=== PATIENT | male | born 1965 | race Caucasian/White ===

== ENCOUNTER → 2018-07-04 14:16 | Outpatient (BNVA) | payer MEDICARE, MEDICAID, SELFPAY | PROVIDERS: Visit Provider Surgery | DX: Z12.11 Encounter for screening for malignant neoplasm of colon (principal) | CPT/HCPCS: S0285 ==

== ENCOUNTER 2018-07-14 09:12 | Day surgery (SDC) | payer MEDICARE, MEDICAID, SELFPAY ==
--- NOTE | 2018-07-10 10:58 | DSU.FORM ---
Per Adolfo he signs for himself. Vicky Penn per pt is his private counselor and will be transporting him to and from his colonoscopy appointment. [facility] called and they will help Adolfo with the medication to take the morning of the procedure. (Gisele Gee pharmacist) Per pt he has a TREY case assembler but he will not be seeing her the day of his procedure. (Amy YANG) Per pt he has a therapy dog and his neighbor will be taking care of him at the time of his procedure>
--- NOTE | 2018-07-14 07:00 | W.COLOREPORT ---
Colonoscopy Report Date of procedure: 07/14/18 Pre-op diagnosis general: Colon Cancer screening Post-op diagnosis procedure note: other (polyps) Procedure: Colonoscopy with polypectomy by forceps Surgeon: Olesya Rodriguez Anesthesia proc note operative: MAC (Dillon Bronson CRNA) Estimated blood loss (mL): 5 Pathology: other (transverse polyps) Complications: None Disposition: same day Indications: Mr. Lezama was seen in the office for his first Colonoscopy. Risks, benefits and complications were reviewed and he wished to proceed. He had no questions. Prep: Miralax/Dulcolax Procedure Start Time: 11:08 Procedure End Time: 11:37 Retraction Time: 20 minutes Findings: 3 sessile polyps in the mid-transverse colon Procedure Description: After informed consent was obtained the patient was taken to the procedure room and placed in a left decubitous position. Monitors were applied and a time out was done. The patients name, date of , procedure, allergies to medications and metal in their body was reviewed. The patient was then sedated. Once sedated and comfortable a rectal exam was done. External exam was normal. Internal exam revealed a normal sphincter tone and no palpable masses. The prostate was smooth. The scope was then introduced and retroflexed. No internal hemorrhoids were identified. The scope was then advanced to the cecum without difficulty. The TI and appendiceal orifice were identified. The prep was adequate. The scope was then slowly retracted over 20 minutes back into the rectum. 3 small sessile polyps were identified in the transverse colon and removed with forceps. The scope was removed and the patient was woken up and taken back to Same day surgery in stable condition. The patient tolerated the procedure well and there were no immediate complications. Follow up: The patient should follow up in 3-5 years, dependingon the final pathology results, unless they develop changes in bowel habits or other new gastrointestinal complaints.
--- NOTE | 2018-07-14 07:04 | PDOC.DSDIS_ITS ---
Discharge Plan Disposition Patient Disposition: HOME Condition: Good Discharge Details Reason For Visit: Colon Cancer screening Attending Provider: Olesya Rodriguez Primary Care Provider: Kelsey Howard Home Meds and New Rx's Prescriptions: Continue atorvastatin 20 mg tablet 20 mg PO DAILY RF: 0 oxycodone-acetaminophen 5-325 mg tablet 1 tab PO DAILY Qty: 30 RF: 0 ketoconazole 2 % shampoo 1 applic Topical DAILY Qty: 120 RF: 3 ketoconazole 2 % cream 1 applic TP BID Qty: 60 RF: 3 FIXADENT 1 dose Topical DAILY RF: 0 latanoprost 2.5 ML drops 1 drp OU HS RF: 0 naloxone [Narcan] 4 MG spray,non-aerosol 4 mg NS PRN Qty: 2 RF: 0 Ketoconazole 15 GM CREAM..G. 15 gm Topical BID Qty: 1 RF: 5 modafinil 200 MG tablet 200 mg PO DIRECTED RF: 0 ropinirole [Requip] 0.25 MG tablet 1 tab PO HS Qty: 90 RF: 4 clomipramine [Anafranil] 50 MG capsule 4 cap PO HS Qty: 360 RF: 12 buspirone 15 MG tablet 2 tab PO TID Qty: 270 RF: 4 cyanocobalamin (vitamin B-12) [Vitamin B-12] 1,000 MCG tablet extended release 1 tab PO DAILY Qty: 90 RF: 12 melatonin 3 MG tablet 3 mg PO HS Qty: 90 RF: 12 aspirin [Ecotrin Low Strength] 81 MG tablet,delayed release (DR/EC) 1 tab PO DAILY Qty: 90 RF: 12 docusate sodium [Colace] 100 MG capsule 1 cap PO BID PRNQty: 180 RF: 4 clonazepam 1 MG tablet 1 mg PO HS Qty: 90 RF: 5 finasteride [Proscar] 5 MG tablet 1 tab PO DAILY Qty: 90 RF: 4 omeprazole 20 MG tablet,delayed release (DR/EC) 20 mg PO DAILY Qty: 90 RF: 12 ammonium lactate 140 GM cream 140 gm Topical BID Qty: 3 RF: 12 lactase [Lactaid Fast Act] 9,000 UNIT tablet,chewable 9,000 unit PO ac and prn Qty: 90 RF: 11 doxycycline monohydrate 100 MG capsule 100 mg PO BID Qty: 14 RF: 0 metoprolol succinate [Toprol XL] 200 MG tablet extended release 24 hr 1 tab PO DAILY RF: 0 tamsulosin 0.4 MG capsule 0.4 mg PO DAILY RF: 0 levothyroxine 50 mcg tablet 2 cap PO DAILY RF: 0 Discharge Instructions Instructions: Colonoscopy (DC), Colorectal Polyps (DC) Additional Instructions: Findings: 3 polyps Follow up: 3-5 years New medications: none Please call if you develop: fevers >101.5 Nausea or Vomiting Abdominal pain that is not transient 1. Because there will be medication in your system for the next 24 hours, you may feel a little sleepy. Your coordination will be affected. Therefore: a. Do not drive or operate dangerous equipment for 24 hours. b. Do not drink alcohol beverages for 24 hours (not even beer). c. Plan to go home and rest for the day. 2. Generally there are no restrictions on your activity after a day or so has gone by, but you may feel a bit fatigued for a few days. 3 After you arrive home you may have a light meal and return to a normal diet as you can tolerate it without feeling sick to your stomach. 4. After surgery, you may feel pain or discomfort. This should be only transient , but if it persists please contact your doctor. 5. If there are any questions regarding the findings of your procedure, please feel free to contact your doctor. 6. If you are unable to contact your doctor with a problem, contact the hospital at [phone]. 7. Continue all your regular medications unless directed otherwise. I understand the above instructions and have no questions. Signature of Patient or Responsible Adult Escort Date/Time Name of Responsible Adult Escort Signature of Nurse Date/Time Activity:: Activity as Tolerated Diet:: As Tolerated Discharge Orders Discharge Orders: Discharge Order (Routine); Ordered 07/14/18 Ordered By: Olesya Rodriguez
[2018-07-14 09:12] VITALS: BP 121/74; PULSE 61; RESP 16; TEMP 36.6; O2SAT 94
[2018-07-14] MEDS: Lactated Ringers 1,000 ML 80 ML IV (10:04)
--- NOTE | 2018-07-14 11:30 | BOWEL_PTH ---
PATIENT: Adolfo Lezama Sr LOC: [facility] U#:[id number] AGE/SX: 52/M ROOM: RE07/14/[address]: Olesya Rodriguez MD : [id number] BED: DIS: 07/14/2018 SPEC #: [id number] RECD: 07/14/18 13:07 STATUS: CHERYL RE #: [id number] BOGDAN: 07/14/18 11:[address]: Olesya Rodriguez DEPT: Surgical Specimen RECD BY: Meghan Anderson ENTERED: 07/14/18 13:08 SP TYPE: Bowel OTHR DR: Kelsey Howard MD, DC Tissues: 1 - BIOPSY BOWEL Procedures: GROSS AND MICRO LEVEL 4 Comments: [id number]
[2018-07-14 12:13] VITALS: BP 118/68; PULSE 64; RESP 17; TEMP 36.3; O2SAT 97
== END 2018-07-14 12:42 | disposition home or self-care (01) ==
LOC: SUR 09:12
PROVIDERS: PCP Family Medicine; Visit Provider Surgery
PROC: 0DJD8ZZ Inspection of Lower Intestinal Tract, Via Natural or Artificial Opening Endoscopic (ICD-10-PCS; CPT 45378; principal; 2018-07-14 11:15)
DX: Z12.11 Encounter for screening for malignant neoplasm of colon (principal); D12.3 Benign neoplasm of transverse colon; J44.9 Chronic obstructive pulmonary disease, unspecified; E11.9 Type 2 diabetes mellitus without complications; G47.33 Obstructive sleep apnea (adult) (pediatric); I10 Essential (primary) hypertension
CPT/HCPCS: 45380; 88305; J2250; J3010

== ENCOUNTER 2018-07-21 01:18 | Outpatient (CLI) | payer MEDICARE, MEDICAID, SELFPAY ==
--- NOTE | 2018-07-21 14:19 | DI.RAD_ITS ---
SYMPTOMS/DIAGNOSIS: CERVICAL DISC DISORDER WITH MYELOPATHY, M50.00 CERVICAL SPINE: Eight views were obtained. There is an anterior and posterior cervical fusion involving C 4 through C 7 with wire fixation posteriorly. C 2 - 3 and C 3 - 4 intervertebral disc spaces appear fairly well maintained. There is a moderate left convex scoliosis involving lower cervical and upper thoracic spine. No other focal bony abnormality seen.
[2018-07-21 15:03] LABS: Abs Immature Grans 0.03 k/cumm (0.0-0.09); Absolute Basophil Count 0.04 k/cumm (0.0-0.2); Absolute Lymphocyte Count 1.72 k/cumm (1.2-3.4); Absolute Monocyte Count 0.71 k/cumm (0.11-0.7); Absolute Neutrophil Count 6.75 k/cumm (1.2-6.7); Basophils % 0.4; Eosinophils % 1.1; HCT 46.1 % (40.0-50.0); HGB 15.5 g/dL (13.5-17.5); Immature Grans % 0.3; Lymphocytes % 18.4; Mean Corp. HGB Concentration 33.6 g/dL (32.0-36.0); Mean Corpuscular Hemoglobin 30.7 pg (27.0-33.0); Mean Corpuscular Volume 91.3 fL (80-95); Mean Platelet Volume 10.5 fL (8.0-11.0); Monocytes % 7.6; Neutrophils % 72.2; Platelet Count 215 x1000/uL (130-400); RBC 5.05 m/cumm (4.50-6.00); RBC Distribution Width 13.8 % (11.8-14.1); White Blood Cell Count 9.35 k/cumm (4.4-10.8)
[2018-07-21 15:19] LABS: Hemoglobin A1C 6.1 % (4.5-6.2)
[2018-07-21 16:20] LABS: ALT 124 U/L (12-78); AST 91 U/L (15-37); Albumin 3.7 g/dL (3.4-5.0); Alkaline Phosphatase 91 U/L (46-116); Anion Gap 10.3 mmol/L (3-11); BUN 10 mg/dL (7-18); Bilirubin, Total 0.4 mg/dL (0.2-1.0); CO2 27.7 mmol/L (21.0-32.0); CREATININE 1.25 mg/dL (0.70-1.30); Calcium 8.9 mg/dL (8.5-10.1); Chloride 99 mmol/L (98-107); Glucose 105 mg/dL (70-100); Potassium 4.3 mmol/L (3.5-5.1); Sodium 137 mmol/L (136-145); Total Protein 7.6 g/dL (6.4-8.2)
[2018-07-21 16:28] LABS: TSH (W/Ref FT4) 1.69 uIU/mL (0.358-3.74)
== END 2018-07-21 01:38 ==
PROVIDERS: Nurse Practitioner Psychiatric/Mental Health; PCP Family Medicine; Visit Provider Family Medicine
DX: E11.9 Type 2 diabetes mellitus without complications (principal); K76.0 Fatty (change of) liver, not elsewhere classified; F33.0 Major depressive disorder, recurrent, mild; M50.022 Cervical disc disorder at C5-C6 level with myelopathy; Z98.1 Arthrodesis status
CPT/HCPCS: 36415; 80053; 72052; 83036; 84443; 85025

== ENCOUNTER → 2018-11-11 12:38 | Outpatient (BNVA) | payer MEDICARE, MEDICAID, SELFPAY | PROVIDERS: PCP Family Medicine; Visit Provider Urology | DX: R39.13 Splitting of urinary stream (principal); I10 Essential (primary) hypertension; E11.9 Type 2 diabetes mellitus without complications; J44.9 Chronic obstructive pulmonary disease, unspecified; Z87.891 Personal history of nicotine dependence | CPT/HCPCS: 99213 ==

== ENCOUNTER 2018-12-11 09:55 | Outpatient (CLI) | payer MEDICARE, MEDICAID, SELFPAY | END 2018-12-11 10:15 | PROVIDERS: PCP Family Medicine; Visit Provider Urology | DX: Z01.818 Encounter for other preprocedural examination (principal) ==

== ENCOUNTER 2018-12-22 08:40 | Day surgery (SDC) | payer MEDICARE, MEDICAID, SELFPAY ==
[2018-12-22 08:54] VITALS: BP 143/64; PULSE 55; RESP 18; TEMP 36.4; O2SAT 96
[2018-12-22] MEDS: Lactated Ringers 1,000 ML 80 ML IV (09:11)
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
[2018-12-22] MEDS: Bupivacaine 0.5% Pres-Free 30 ML VIAL (10:51)
--- NOTE | 2018-12-22 10:58 | W.PM.DSUDISC ---
Discharge Plan Disposition Patient Disposition: HOME Condition: Stable Discharge Details Reason For Visit: circumcision Attending Provider: Emiliano Jade Primary Care Provider: Kelsey Howard Home Meds and New Rx's Prescriptions: No Action ketoconazole 2 % shampoo 1 applic Topical DAILY Qty: 120 RF: 3 ketoconazole 2 % cream 1 applic TP BID Qty: 60 RF: 3 ammonium lactate 12 % cream 1 applic TP BID RF: 0 oxycodone-acetaminophen 5-325 mg tablet 1 tab PO DAILY MDD 1 Qty: 30 RF: 0 clotrimazole 1 % solution 1 applic TP BID Qty: 30 RF: 2 FIXADENT 1 dose Topical DAILY RF: 0 latanoprost 2.5 ML drops 1 drp OU HS RF: 0 Narcan 4 MG spray,non-aerosol 4 mg NS PRN Qty: 2 RF: 0 modafinil 200 MG tablet 200 mg PO DIRECTED RF: 0 ropinirole [Requip] 0.25 MG tablet 1 tab PO HS Qty: 90 RF: 4 clomipramine [Anafranil] 50 MG capsule 4 cap PO HS Qty: 360 RF: 12 buspirone 15 MG tablet 2 tab PO TID Qty: 270 RF: 4 cyanocobalamin (vitamin B-12) [Vitamin B-12] 1,000 MCG tablet extended release 1 tab PO DAILY Qty: 90 RF: 12 melatonin 3 MG tablet 3 mg PO HS Qty: 90 RF: 12 aspirin [Ecotrin Low Strength] 81 MG tablet,delayed release (DR/EC) 1 tab PO DAILY Qty: 90 RF: 12 docusate sodium [Colace] 100 MG capsule 1 cap PO BID PRNQty: 180 RF: 4 finasteride [Proscar] 5 MG tablet 1 tab PO DAILY Qty: 90 RF: 4 omeprazole 20 MG tablet,delayed release (DR/EC) 20 mg PO DAILY Qty: 90 RF: 12 ammonium lactate 140 GM cream 140 gm Topical BID Qty: 3 RF: 12 Lactaid Fast Act 9,000 UNIT tablet,chewable 9,000 unit PO ac and prn Qty: 90 RF: 11 bupropion HCl [Wellbutrin SR] 150 mg tablet sustained-release 12 hr 150 mg PO BID RF: 0 clonazepam 1 mg tablet 1 mg PO HS Qty: 90 RF: 5 amoxicillin 500 mg tablet 500 mg PO QID Qty: 28 RF: 0 metoprolol succinate [Toprol XL] 200 MG tablet extended release 24 hr 1 tab PO DAILY RF: 0 tamsulosin 0.4 MG capsule 0.4 mg PO DAILY RF: 0 levothyroxine 50 mcg tablet 2 cap PO DAILY RF: 0 Discharge Instructions Additional Instructions: OK to bathe/shower tomorrow - once dressing is wet, can remove dressing F/U with me @ 1 week May restart aspirin on 12/24/18 Activity:: Activity as Tolerated Remove Dressings/Wound Care:: 24 hours Shower/Bathe:: 24 hours Diet:: As Tolerated Discharge Orders Discharge Orders: Discharge Order (Routine); Ordered 12/22/18 Ordered By: Emiliano Jade DS: Diagnosis Discharge Diagnosis (1) Urinary stream splitting: Status: Chronic
[2018-12-22 11:32] VITALS: BP 114/70; PULSE 55; RESP 18; O2SAT 97
[2018-12-22] MEDS: HYDROcodone 5/Acetaminophen 325 TAB PO (11:41)
--- NOTE | 2018-12-22 12:10 | ROE_ITS ---
DATE OF PROCEDURE: December 22, 2018 PREOPERATIVE DIAGNOSIS: Splitting of the urinary stream. POSTOPERATIVE DIAGNOSIS: Same. PROCEDURE: Circumcision. ANESTHESIA: MAC with local. COMPLICATIONS: None. ESTIMATED BLOOD LOSS: Minimal. HISTORY: This is a 53-year-old gentleman, who has lower urinary tract symptoms, including spraying o f his urinary stream. We have not identified a urethral stricture. The patient is convinced that th e redundant foreskin is what is causing the spraying. He presents for circumcision. He understands that his stream may not improve even with this procedure. OPERATIVE REPORT: The patient is brought to the Operating Room on 12/22/18. He is placed in the supi ne position. He was given monitored anesthesia care. His genitalia was then prepped and draped. A ring block was performed on the penis using half percent Marcaine without epinephrine. A dorsal peni le nerve block was likewise performed. We then made two incisions in the foreskin. Both were circumferential. The first was on the outer a spect of the foreskin and the second was on the inner aspect just below the level of the coronal sulc us. The redundant skin was then excised. Any bleeding points that were encountered were cauterized using the Bovie. The skin edges were then reapproximated using simple interrupted #4-0 Chromic sutures. A Vaseline gauze dressing was then applied. The patient tolerated the procedure well with no complic ations. cc: Kelsey Howard M.D.
== END 2018-12-22 13:10 | disposition home or self-care (01) ==
PROVIDERS: PCP Family Medicine; Visit Provider Urology
PROC: (CPT 54161; principal; 2018-12-22 10:30)
DX: N47.8 Other disorders of prepuce (principal); R39.13 Splitting of urinary stream
CPT/HCPCS: 54161; NC; J0690; J1885; J2250; J2405

== ENCOUNTER → 2018-12-30 13:06 | Outpatient (BNVA) | payer MEDICARE, MEDICAID, SELFPAY | PROVIDERS: PCP Family Medicine; Visit Provider Urology | DX: R39.13 Splitting of urinary stream (principal); Z48.816 Encounter for surgical aftercare following surgery on the genitourinary system ==

== ENCOUNTER → 2019-02-03 14:21 | Outpatient (BNVA) | payer MEDICARE, MEDICAID, SELFPAY | PROVIDERS: PCP Family Medicine; Visit Provider Urology | DX: R39.13 Splitting of urinary stream (principal); Z48.816 Encounter for surgical aftercare following surgery on the genitourinary system | CPT/HCPCS: 99212 ==

== ENCOUNTER 2019-02-27 00:33 | Outpatient (CLI) | payer MEDICARE, MEDICAID, SELFPAY ==
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
[2019-02-27 10:59] LABS: Hemoglobin A1C 6.5 % (4.5-6.2)
[2019-02-27 12:03] LABS: ALT 98 U/L (12-78); AST 69 U/L (15-37); Albumin 3.4 g/dL (3.4-5.0); Alkaline Phosphatase 86 U/L (46-116); Anion Gap 8.7 mmol/L (3-11); BUN 11 mg/dL (7-18); Bilirubin, Total 0.3 mg/dL (0.2-1.0); CO2 25.3 mmol/L (21.0-32.0); CREATININE 1.02 mg/dL (0.70-1.30); Calcium 8.9 mg/dL (8.5-10.1); Chloride 105 mmol/L (98-107); Glucose 110 mg/dL (70-100); Potassium 4.9 mmol/L (3.5-5.1); Sodium 139 mmol/L (136-145); TSH (W/Ref FT4) 1.72 uIU/mL (0.358-3.74); Total Protein 7.2 g/dL (6.4-8.2)
[2019-02-27 12:21] LABS: Cholesterol 184 mg/dL (50-200); HDL Cholesterol 35 mg/dL (40-60); LDL CHOLESTEROL 126 mg/dL (<100); Triglyceride 152 mg/dL (30-150)
== END 2019-02-27 00:53 ==
PROVIDERS: PCP Family Medicine; Visit Provider Family Medicine
DX: E03.9 Hypothyroidism, unspecified (principal); E11.9 Type 2 diabetes mellitus without complications; E78.5 Hyperlipidemia, unspecified; I10 Essential (primary) hypertension; M79.641 Pain in right hand; M18.11 Unilateral primary osteoarthritis of first carpometacarpal joint, right hand; M19.041 Primary osteoarthritis, right hand
CPT/HCPCS: 36415; 80053; 80061; 83721; 73130; 83036; 84443

== ENCOUNTER → 2019-07-28 13:24 | Outpatient (BNVA) | payer MEDICARE, MEDICAID, SELFPAY | PROVIDERS: PCP Family Medicine; Referring Provider Family Medicine; Visit Provider Urology | DX: R39.9 Unspecified symptoms and signs involving the genitourinary system (principal); N39.41 Urge incontinence; R35.1 Nocturia | CPT/HCPCS: 51798; 99213 ==

== ENCOUNTER 2019-07-31 01:00 | Outpatient (CLI) | payer MEDICARE, MEDICAID, SELFPAY ==
--- NOTE | 2019-07-31 14:31 | DI.US_ITS ---
EXAM: US RENAL CLINICAL HISTORY: r/o hydronephrosis, N39.41 URGE INCONTINENCE TECHNIQUE: Ultrasound performed using standard protocol. COMPARISON: ABDOMEN ULTRASOUND (P) from 07/02/2011 FINDINGS: The kidneys are normal in size and shape. There is a simple cyst of the midpole of the right kidney measuring 42 millimeters in diameter. There is no evidence of hydronephrosis or nephrolithiasis. Ur inary bladder is unremarkable in appearance with pre and postvoid urinary bladder volume measurements 173 cc and 57 cc, respectively. Ureteral jets are noted bilaterally. IMPRESSION: Negative renal ultrasound. Incidental simple right renal cyst.
== END 2019-07-31 01:20 ==
PROVIDERS: PCP Family Medicine; Visit Provider Urology
DX: N39.41 Urge incontinence (principal); N28.1 Cyst of kidney, acquired
CPT/HCPCS: 76770

== ENCOUNTER 2019-08-12 02:34 | Outpatient (CLI) | payer MEDICARE, MEDICAID, SELFPAY ==
[2019-08-12 10:28] LABS: HCT 43.2 % (40.0-50.0); HGB 13.8 g/dL (13.5-17.5); Mean Corp. HGB Concentration 31.9 g/dL (32.0-36.0); Mean Corpuscular Hemoglobin 29.5 pg (27.0-33.0); Mean Corpuscular Volume 92.3 fL (80-95); Platelet Count 221 x1000/uL (130-400); RBC 4.68 m/cumm (4.50-6.00); RBC Distribution Width 14.6 % (11.8-14.1); White Blood Cell Count 5.95 k/cumm (4.4-10.8)
[2019-08-12 10:41] LABS: Hemoglobin A1C 6.6 % (4.5-6.2)
[2019-08-12 11:14] LABS: COMMENT (LAB VIEW ONLY) 101.89 mg/dL; Microalb ug/mg Crea 4.1 ug/mg Cr
[2019-08-12 11:15] LABS: ALT 95 U/L (16-63); AST 73 U/L (15-37); Albumin 3.3 g/dL (3.4-5.0); Alkaline Phosphatase 76 U/L (46-116); Anion Gap 5.2 mmol/L (3-11); BUN 9 mg/dL (7-18); Bilirubin, Total 0.5 mg/dL (0.2-1.0); CO2 28.8 mmol/L (21.0-32.0); CREATININE 1.14 mg/dL (0.70-1.30); Calcium 8.6 mg/dL (8.5-10.1); Chloride 109 mmol/L (98-107); Glucose 118 mg/dL (70-100); Potassium 4.6 mmol/L (3.5-5.1); Sodium 143 mmol/L (136-145); Total Protein 7.1 g/dL (6.4-8.2)
== END 2019-08-12 02:54 ==
PROVIDERS: PCP Family Medicine; Visit Provider Family Medicine
DX: I10 Essential (primary) hypertension (principal); E03.9 Hypothyroidism, unspecified; E11.9 Type 2 diabetes mellitus without complications
CPT/HCPCS: 36415; 80053; 85027; 82043; 82570; 83036

== ENCOUNTER 2019-08-21 13:19 | Outpatient (REF) | payer MEDICARE, MEDICAID, SELFPAY | END 2019-08-21 13:39 | LOC: LBN 13:19 | PROVIDERS: PCP Family Medicine; Visit Provider Family Medicine | DX: R19.7 Diarrhea, unspecified (principal) | CPT/HCPCS: 87329 ==

== ENCOUNTER 2019-10-22 11:18 | Emergency (ER) | payer MEDICARE, MEDICAID, SELFPAY ==
[2019-10-22 11:21] VITALS: BP 110/88; PULSE 59; RESP 18; TEMP 36.3; O2SAT 95
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
[2019-10-22] MEDS: Tetanus & Diphtheria Tox,ADULT 0.5 ML VIAL IM (11:50)
== END 2019-10-22 12:04 | disposition home or self-care (01) ==
PROVIDERS: Emergency Provider Emergency Medicine; PCP Family Medicine
DX: S61.411A Laceration without foreign body of right hand, initial encounter (principal); W00.0XXA Fall on same level due to ice and snow, initial encounter; J44.9 Chronic obstructive pulmonary disease, unspecified; Z87.891 Personal history of nicotine dependence; E11.9 Type 2 diabetes mellitus without complications; I10 Essential (primary) hypertension
CPT/HCPCS: 12002; 90471

== ENCOUNTER 2019-10-23 10:32 | Emergency (ER) | payer MEDICARE, MEDICAID, SELFPAY ==
[2019-10-23 10:42] VITALS: BP 124/95; PULSE 65; RESP 18; TEMP 36; O2SAT 96
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
--- NOTE | 2019-10-23 11:02 | DI.RAD_ITS ---
EXAM: XR KNEE LT 3V AP,LAT,OMID INDICATION: Left medial knee pain after fall. COMPARISON: No exams were available for comparison TECHNIQUE: 2D digital imaging was performed. FINDINGS: No fracture or joint effusion is seen. The joint spaces are well maintained. IMPRESSION: Negative left knee.
== END 2019-10-23 11:42 | disposition home or self-care (01) ==
PROVIDERS: Emergency Provider Emergency Medicine; PCP Family Medicine
DX: S83.92XA Sprain of unspecified site of left knee, initial encounter (principal); W00.0XXA Fall on same level due to ice and snow, initial encounter; X50.9XXA Other and unspecified overexertion or strenuous movements or postures, initial encounter
CPT/HCPCS: 29505; 73562; 99283; L1810

== ENCOUNTER 2019-11-05 10:33 | Outpatient (CLI) | payer MEDICARE, MEDICAID, SELFPAY ==
[2019-11-05 11:43] LABS: Bilirubin Negative (Negative); Blood Negative (Negative); Clarity Clear (Clear); Glucose Negative (Negative); Ketones Negative (Negative); Leukocyte Esterase Negative (Negative); Nitrite Negative (Negative); Specific Gravity 1.025 (1.005-1.025); Urobilinogen 0.2 EU/dL (Up TO 0.2); pH 6.5 (5-8)
== END 2019-11-05 10:53 ==
LOC: LBO 10:35 → LBN 10:45
PROVIDERS: PCP Family Medicine; Visit Provider Family Medicine
DX: N39.0 Urinary tract infection, site not specified (principal); R19.7 Diarrhea, unspecified
CPT/HCPCS: 87329; 81003

== ENCOUNTER 2019-11-19 02:10 | Outpatient (CLI) | payer MEDICARE, MEDICAID, SELFPAY ==
--- NOTE | 2019-11-19 11:00 | DI.CTLCSR_ITS ---
EXAM: CT CHEST LUNG CANCER SCREEN CLINICAL HISTORY: Screening for lung cancer Z87.891. TECHNIQUE: Imaging protocol: Axial computed tomography images were obtained and coronal and sagittal reformatted images were created and reviewed. The exam was performed without contrast. COMPARISON: No exams were available for comparison FINDINGS: Tracheobronchial tree: Patent where visualized. Mediastinum and Marie: No dominant adenopathy or fluid collection. Pulmonary parenchyma: No consolidation or dominant measurable mass. No architectural distortion. Pleura: No effusion or pneumothorax. Heart: The heart is not dilated. No coronary artery calcifications are seen. No pericardial effusion. Aorta: Thoracic aorta non-dilated. Mild atherosclerosis. Upper abdomen: Unremarkable. Lymph nodes: Within normal limits. Bones:Degenerative changes. Right convex scoliosis of the thoracic spine. IMPRESSION: No pulmonary nodules. Lung RADS Cat 1 - Negative: No nodules and definitely benign nodules. DATA REPOSITORY: All CT scans at this facility are submitted to the National Radiology Data Registry (NRDR) Dose Index Registry (DIR) with the [employer] (ACR). RADIATION OPTIMIZATION: All CT scans at this facility use at least one of these dose optimization te chniques: automated exposure control; mA and/or kV adjustment per patient size (includes targeted exa ms where dose is matched to clinical indication); or iterative reconstruction.
--- NOTE | 2019-11-19 11:00 | DI.US_ITS ---
EXAM: US RENAL CLINICAL HISTORY: suprapubic pain, h/o urinary retention R33.9, N39.41 INCONTINENCE. TECHNIQUE: Mora scale, color and spectral Doppler were used. COMPARISON: US RENAL from 07/31/2019 FINDINGS: Renal size in cm: Right: 12.6 left: 12.6 Echogenicity: Normal Hydronephrosis: No Cyst or mass: 4.2 cm simple right renal cyst. This is stable. Nephrolithiasis: No Other findings: None Bladder:Normal. Both ureteral jets were visualized. No bladder wall thickening is noted. Prevoid vol:303 cc Postvoid vol:56 cc DOPPLER FINDINGS: Normal and symmetric blood flow to the kidneys. IMPRESSION: 1. Small postvoid urinary bladder volume. 2. Stable simple right renal cyst.
== END 2019-11-19 02:30 ==
PROVIDERS: PCP Family Medicine; Visit Provider Family Medicine
DX: Z12.2 Encounter for screening for malignant neoplasm of respiratory organs (principal); Z87.891 Personal history of nicotine dependence; R33.9 Retention of urine, unspecified; R10.31 Right lower quadrant pain; N39.41 Urge incontinence; N28.1 Cyst of kidney, acquired
CPT/HCPCS: 76770; G0297

== ENCOUNTER 2019-11-25 03:47 | Outpatient (CLI) | payer MEDICARE, MEDICAID, SELFPAY ==
--- NOTE | 2019-11-25 14:36 | NS.NUTBLAN_ITS ---
Thank you for nutrition consult for Adolfo Lezama Sr. for Medical Nutrition Therapy for Obesity, non alcoholic fatty liver disease, hyperlipidemia. Adolfo came to office today, joined with his support dog Ashwin. Adolfo reports he cannot read but has adequate sight for pictures. He relies on his family preservation caseworker (Vicky) for many of his concerns and she helps him read various information he needs regarding his health. Most recent weight taken in office on 11/02/19 was 341 lbs, BMI 44 indicating morbid obesity. Recent labs (08/12/19) indicate elevated glucose and A1C (118mg/dl/6.6%) and elevated triglycerides (152mg/dl) and LDL (126mg/dl), along with low HDL (35), liver enzymes trending upward and indicating fatty liver disease per MD. Adolfo reports that he does not take any medications for Diabetes and manages it with diet. He also reports that he cannot take a statin medication as it interferes with his liver function. Adolfo is and lives with his dog. He receives 1 meal a day from [employer]. He reports that he does not have enough money for healthy food choices. He reports he cannot exercise due to multiple joint pain. Diet Record indicates 3 meals a day with high reliance on convenience foods as is not comfortable cooking on his own, his meals of choice are mostly cereal and milk (mostly high sugar cereal such as CapnCrunch), sandwiches, and canned food such as spagettios Reviewed with Adolfo today the risks associated with obesity, high intake of convenience foods and concurrent elevated lab values as they all increase risk for CAD, WI and stroke. We discussed meal options that will help with weight loss and normalization of blood sugars and fats. Nutritional Diagnosis: Morbid obesity with BMI of 44, Excessive energy intake from convenience foods, inadequate intake of fruits and vegetables, food and nutrition knowledge deficit and inadequate access to healthy food options. Intervention: Educated Adolfo on how to follow a balanced meal plan with low cost food options available to him currently. Provided him with written pictorial education material such as the What to Et, A Days'Food, a variation of the DASH diet and the Healthy Eating Plate by [employer]. Adolfo is also interested to be referred to [facility] for more help with exercise, nutrition on weekly basis. He declined referral for [facility]. Plan: Adolfo will work with his family preservation caseworker Vicky to plan meals that don't rely on high salt, high sugar, high fat foods. Adolfo will follow up with [facility] for help with access to more healthful meal options and exercise options. Adolfo declined follow up meeting with song writer. Goal is for a 10% weight loss in next 90 days - 10 lbs each month. He will folllow up with PCP quarterly to monitor weight loss.
== END 2019-11-25 04:07 ==
PROVIDERS: PCP Family Medicine; Visit Provider Family Medicine
DX: E66.01 Morbid (severe) obesity due to excess calories (principal); E11.9 Type 2 diabetes mellitus without complications; E78.5 Hyperlipidemia, unspecified; K76.0 Fatty (change of) liver, not elsewhere classified; Z71.3 Dietary counseling and surveillance
CPT/HCPCS: 97802

== ENCOUNTER 2020-01-01 03:37 | Outpatient (CLI) | payer MEDICARE, MEDICAID, SELFPAY ==
--- NOTE | 2020-01-01 10:45 | DI.US_ITS ---
EXAM: US ABDOMEN TECHNIQUE: Ultrasound abdomen performed using standard protocol. COMPARISON: ABDOMEN ULTRASOUND (P) from 07/02/2011 US RENAL from 07/31/2019 FINDINGS: ABDOMINAL AORTA AND IVC: Visualized portions normal caliber. PANCREAS: Normal where visualized. LIVER: Normal. Hepatopedal flow in the Portal Vein. GALLBLADDER: No evidence of cholelithiasis. No evidence of wall thickening. No pericholecystic fluid identified. BILIARY SYSTEM: Common bile duct measures 4 mm. No intrahepatic biliary ductal dilation. NOVOA'S SIGN: Negative. KIDNEYS: Kidneys are symmetric in size. No evidence of renal calculi. No evidence of hydronephrosis. There is a stable 4.2 cm simple cyst on the right kidney. SPLEEN: Not enlarged. ASCITES: None seen. IMPRESSION: Unremarkable abdominal ultrasound. DATA REPOSITORY:
== END 2020-01-01 03:57 ==
PROVIDERS: PCP Family Medicine; Visit Provider Family Medicine
DX: R10.9 Unspecified abdominal pain (principal); R19.7 Diarrhea, unspecified
CPT/HCPCS: 76700

== ENCOUNTER 2020-05-02 00:58 | Outpatient (CLI) | payer MEDICARE, MEDICAID, SELFPAY ==
--- NOTE | 2020-05-02 09:15 | DI.RAD_ITS ---
EXAM: XR WRIST RT COMPLETE CLINICAL HISTORY: r wrist pain, INJURY, S69.91XA. TECHNIQUE: 2D digital imaging was performed. COMPARISON: No exams were available for comparison FINDINGS: BONES: No acute fracture is present. No bony destructive lesion is seen. JOINTS: There is mild widening of the scapholunate distance which could indicate ligament disruption. There is no significant dorsal tilt of the lunate. There are mild degenerative changes at the base of the 1st metacarpal and 1st metacarpal phalangeal joint. SOFT TISSUE: Normal. IMPRESSION: Widening of the scapholunate distance. DATA REPOSITORY: RADIATION DOSE DELIVERED:
--- NOTE | 2020-05-02 09:15 | DI.RAD_ITS ---
EXAM: XR SHOULDER RT COMPLETE 2+V CLINICAL HISTORY: BILATERAL SHOULDER PAIN, M25.519. TECHNIQUE: 2D digital imaging was performed. COMPARISON: No exams were available for comparison FINDINGS: BONES: No acute fracture is present. No bony destructive lesion is seen. JOINTS: No dislocation present. There is spurring at the AC joint and margin of the glenoid. The gle nohumeral joint space is well maintained. SOFT TISSUE: Normal. IMPRESSION: Mild degenerative changes. DATA REPOSITORY: RADIATION DOSE DELIVERED:
--- NOTE | 2020-05-02 09:15 | DI.RAD_ITS ---
EXAM: XR SHOULDER LT COMPLETE 2+V CLINICAL HISTORY: bilateral shoulder pain,M25.519. TECHNIQUE: 2D digital imaging was performed. COMPARISON: CR XR SHOULDER RT COMPLETE 2+V from 05/02/2020 FINDINGS: There is minimal spurring at the AC joint and undersurface of the acromion. There is narrowing of th e inferior glenohumeral joint and mild inferior spurring. No tendon or joint space calcifications ar e seen. IMPRESSION: Mild degenerative changes. DATA REPOSITORY: RADIATION DOSE DELIVERED:
== END 2020-05-02 01:18 ==
PROVIDERS: PCP Family Medicine; Visit Provider Family Medicine
DX: M25.531 Pain in right wrist (principal); S69.91XA Unspecified injury of right wrist, hand and finger(s), initial encounter; M19.012 Primary osteoarthritis, left shoulder; M19.011 Primary osteoarthritis, right shoulder
CPT/HCPCS: 73030; 73110

== ENCOUNTER → 2020-06-10 13:58 | Outpatient (BNVA) | payer MEDICARE, MEDICAID, SELFPAY | PROVIDERS: PCP Family Medicine; Referring Provider Family Medicine; Visit Provider Urology | DX: R32 Unspecified urinary incontinence (principal); R39.13 Splitting of urinary stream; R33.8 Other retention of urine; J44.9 Chronic obstructive pulmonary disease, unspecified; I10 Essential (primary) hypertension; E11.9 Type 2 diabetes mellitus without complications; M54.5 Low back pain | CPT/HCPCS: 99213 ==

== ENCOUNTER → 2020-06-23 14:22 | Outpatient (BNVA) | payer MEDICARE, MEDICAID, SELFPAY | PROVIDERS: PCP Family Medicine; Referring Provider Family Medicine; Visit Provider Urology | DX: R32 Unspecified urinary incontinence (principal); I10 Essential (primary) hypertension; E11.9 Type 2 diabetes mellitus without complications; J44.9 Chronic obstructive pulmonary disease, unspecified | CPT/HCPCS: 99213 ==

== ENCOUNTER 2020-07-26 19:12 | Outpatient (REF) | payer MEDICARE, MEDICAID, SELFPAY ==
[2020-07-26 21:07] LABS: COMMENT (LAB VIEW ONLY) 70.94 mg/dL; Microalb ug/mg Crea 4.5 ug/mg Cr
[2020-07-26 21:14] LABS: ALT 24 U/L (16-63); AST 19 U/L (15-37); Albumin 3.8 g/dL (3.4-5.0); Alkaline Phosphatase 92 U/L (46-116); Anion Gap 8.6 mmol/L (3-11); BUN 13 mg/dL (7-18); Bilirubin, Total 0.3 mg/dL (0.2-1.0); CO2 25.4 mmol/L (21.0-32.0); CREATININE 1.16 mg/dL (0.70-1.30); Chloride 105 mmol/L (98-107); Glucose 86 mg/dL (74-106); Potassium 4.1 mmol/L (3.5-5.1); Sodium 139 mmol/L (136-145); TSH (W/Ref FT4) 1.49 uIU/mL (0.36-3.74); Total Protein 7.6 g/dL (6.4-8.2)
[2020-07-26 21:21] LABS: *AMPHETAMINES SCREEN URINE Negative (Negative); *BARBITURATES SCREEN URINE Negative (Negative); *BENZODIAZEPINES SCREEN URINE Negative (Negative); Cannabinoids THC Negative (Negative); Cocaine Screen,Urine Negative (Negative); METHADONE URINE SCREEN Negative (Negative); OPIATES URINE SCREEN Negative (Negative)
[2020-07-26 21:25] LABS: Tricyclic Antidepressants Negative (Negative)
[2020-07-26 23:18] LABS: Hemoglobin A1C 5.8 % (<5.7)
== END 2020-07-26 19:32 ==
LOC: LBN 19:12
PROVIDERS: PCP Family Medicine; Visit Provider Family Medicine
DX: I10 Essential (primary) hypertension (principal); E11.9 Type 2 diabetes mellitus without complications; F32.9 Major depressive disorder, single episode, unspecified; G89.4 Chronic pain syndrome; R94.5 Abnormal results of liver function studies
CPT/HCPCS: 80053; 80307; 82043; 82570; 83036; 84443

== ENCOUNTER 2020-09-22 02:37 | Outpatient (RCR) | payer MEDICARE, MEDICAID, SELFPAY ==
--- NOTE | 2020-09-22 17:00 | HOLTER_ITS ---
APPROVED REPORT Exam Type: HOLTER MONITOR APPLICATION Reason for Test: bradycardia Patient Location: O Conclusion This is a 48-hour Holter monitor ordered for indication of bradycardia. ???The patient was in normal sinus rhythm for the majority of the recording with an average heart rat e of 51 bpm (35 bpm - 85 bpm) ???The majority of bradycardic episodes occurred between the hours of 12 AM and 6 AM ???There were no episodes of supraventricular tachycardia and rare PACs. ???There were no episodes of ventricular tachycardia and rare PVCs. ???There were no episodes of atrial fibrillation, no pauses greater than 3 seconds and no evidence of high degree heart block.
== END 2020-10-06 23:59 | disposition home or self-care (01) ==
LOC: RT 02:37
PROVIDERS: PCP Family Medicine; Visit Provider Family Medicine
DX: R00.1 Bradycardia, unspecified (principal)
CPT/HCPCS: 93227; 93225; 93226

== ENCOUNTER 2020-10-10 01:54 | Outpatient (CLI) | payer OTHER, MEDICAID, SELFPAY ==
[2020-10-10] MEDS: Regadenoson 0.4 MG/5 ML SYR IVP (13:39)
== END 2020-10-10 02:14 ==
PROVIDERS: PCP Family Medicine; Visit Provider Family Medicine
DX: I42.9 Cardiomyopathy, unspecified (principal); R07.9 Chest pain, unspecified; I10 Essential (primary) hypertension; R00.1 Bradycardia, unspecified
CPT/HCPCS: J2785

== ENCOUNTER 2020-10-10 01:59 | Outpatient (CLI) | payer OTHER, MEDICAID, SELFPAY ==
--- NOTE | 2020-10-10 07:30 | DI.NM_ITS ---
APPROVED REPORT Exam: Pharmacologic Patient Location: Out-Patient Room/Bed: Stress Nurse: Hallie Dozier RN Ordering Provider:SUNSHINE BUTT, Contact Number: BMI: 38.78 Baseline Rhythm: Sinus Bradycardia Indications: Cardiomyopathy, Chest Pain, Bradycardia. Medical History Medical History: COPD, HLD, DM, HTN, GERD, Hypothyroidism, SAEID, Depression, Bradycardia, Cardiomyopat hy Cardiac Medications: Aspirin, Omeprazole Allergies: No known drug allergies Cardiac Risk Factors: FHX of CAD, HTN, Hyperlipidemia, DM, COPD, Smoking (former) Previous Cardiac Procedures: None. Pretest Chest Pain Characteristics: 5/10 sharp, nonradiating left sided chest pain, occuring intermit tently, No chest pain Exercise History: Sedentary Physical Disabilities: Legs Lung Sounds: Clear to auscultation Heart Sounds: Regular Stress Test Details Test: Exercise stress converted to pharmacologic stress due to failure to obtain a diagnostic stress test. Reason for pharmacologic stress test: physical limitation. Nuclear Acquisition: Rest Tc-99m/Stress Tc-99m 1 day Rest Isotope: Tc-99m Sestamibi. Dose: 14.8 Date: 10/10/20 Injection Time: 1115 Stress Isotope: Tc-99m Sestamibi. Dose: 46 Date: 10/10/20 Injection Time: 1330 HR Resting HR Supine: 42 bpm Max Heart Rate (APMHR): 164.454115 bpm Resting HR Standin bpm Target HR (85% APMHR): 139.620286 bpm Max HR Achieved: 79 bpm % of APMHR: 48.17 Recovery HR: 50 bpm HR response to stress: Normal HR response to stress BP Resting BP Supine: 138/80 mmHg Resting BP Standin/78 mmHg Max BP: 146/80 mmHg Recovery BP: 136/82 mmHg BP response to stress: Normal blood pressure response to stress. ECG Resting ECG: Sinus Bradycardia Ectopy: None. Stress ECG: Sinus Rhythm, Sinus Bradycardia ST Change: No significant ST segment changes noted. Arrhythmia: Rare PVC. Recovery ECG: Sinus Bradycardia Recovery ST Change: No significant ST segment changes noted. Recovery Arrhythmia: None. Clinical Reason for Termination: Leg pain. Stress Symptoms: Leg Fatigue Exercise duration: 3 min03 sec Highest Stage Reached: Stage 2: 2.5 mph at 12% grade. Exercise capacity: 4.88 METs Stress ECG Conclusion 1. The patient exercised for 3 minutes (5 METS). Exercise was stopped due to leg fatigue and patient was unable to reach target heart rate. 2. Stress test was converted to a pharmacological stress. 3. The EKG portion of this exam is nondiagnostic. Stress Test Summary STAGE Time (mins) Speed (mph) Grade (%) HR BP SYMPTOMS METS Supine 42 138/80 Standing 55 132/78 1 3 1.7 10 75 146/80 4.6 1 min post Lexiscan injection 67 148/76 Nausea. 3 min post Lexiscan injection 59 130/80 Nausea resolved. 6 min post Lexiscan injection 50 136/82 Patient reports 5/10 sharp, nonradiating left sided chest pain prior to stress test. Pain is intermit tent and has been going on for years. Current pain has been present for a couple hours, with no obv ious precipitating factor. Consulted with Dr. Mays who agrees to continue with stress test. Chest p ain did not increase or decrease with exercise or regadenoson. MPI Conclusion Fraction was 43% with stress. There were no wall motion abnormalities. There was a small reversible perfusion defect at the apex consistent with infarct. Radiologist Interpretation Radiologist Interpretation by: Samson Coon MD Interpretation Date/Time: 10/11/2020 16:06:19
--- NOTE | 2020-10-10 10:30 | DI.US_ITS ---
APPROVED REPORT EXAM: Comprehensive 2D, Doppler, and color-flow Echocardiogram Patient Location: Out-Patient Senior Hris Analyst: Maira Hansen RDCS (AE) Indications: HTN, Cardiomyopathy, Bradycardia Other Information Study Quality: Adequate Conclusion Left Ventricle : The left ventricle is normal size. The left ventricular systolic function is normal. The left ventricular ejection fraction is within the normal range. There is normal left ventricular wall thickness. There is normal LV segmental wall motion. The left ventricular diastolic function is normal. LVEF is 55-60%. Right Ventricle : The right ventricle is normal size. The right ventricular systolic function is norm al. The RVSP is 21.3 mmHg. Atria : The left atrium size is normal. The right atrium size is normal. Mitral Valve : Moderate mitral annular calcification. Trace mitral regurgitation. No evidence of mitr al valve stenosis. Great Vessels : The aortic root is normal in size. The ascending aorta is normal in size. IVC is norm al in size and collapses >50% with inspiration. Compared to study from 08/30/2014, there is no significant change. Wall motion Left Ventricle The left ventricle is normal size. The left ventricular systolic function is normal. The left ventric ular ejection fraction is within the normal range. There is normal left ventricular wall thickness. T here is normal LV segmental wall motion. The left ventricular diastolic function is normal. There is no ventricular septal defect visualized. LVEF is 55-60%. Right Ventricle The right ventricle is normal size. The right ventricular systolic function is normal. The RVSP is 21 .3 mmHg. Atria The left atrium size is normal. The right atrium size is normal. The interatrial septum is intact wit h no evidence for an atrial septal defect. Aortic Valve The aortic valve is normal in structure. Aortic valve is trileaflet. Aortic valve is calcified. No he modynamically significant valvular aortic stenosis. No aortic regurgitation is present. Mitral Valve Moderate mitral annular calcification. No evidence of mitral valve stenosis. Trace mitral regurgitati on. Tricuspid Valve The tricuspid valve is normal in structure. There is no tricuspid valve stenosis. Trace tricuspid reg urgitation. Pulmonic Valve The pulmonary valve is normal in structure. There is no pulmonic valvular stenosis. Trace pulmonic re gurgitation. Great Vessels The aortic root is normal in size. The ascending aorta is normal in size. IVC is normal in size and c ollapses >50% with inspiration. Pericardium There is no pericardial effusion. 2D Dimensions IVSD d PLAX 0.95 cm M: 0.6-1.2 LV Vol A2C d MOD 151.6 mL LVPW d PLAX 0.96 cm M: 0.6 - 1.2 LV Vol A4C d MOD 197.1 mL LVID d PLAX 5.30 cm M: 4.2 - 5.8 LA vol/ BSA A2C s A-L 22.9 mL/m2 LVDs 3.70 cm M: 2.5 - 4.0 LA vol/ BSA A4C s A-L 28.8 mL/m2 Ao Root d 3.67 cm M: 3.1 - 3.7 LA Vol/ BSA Biplane s A-L 26.3 mL/m2 RA Area A4C 19.18 cm2 LA Area A4C s MOD 22.98 cm2 RA Vol/ BSA A4C s A-L 24.5 mL/m2 LA Area A2C s MOD 19.99 cm2 Ao Asc Diam d 3.44 cm M: 2.6 - 3.4 LV EF A4C MOD 59.6 % LV EF Teichholz 56.1 % LV EF A2C MOD 55.8 % LVEF (Smith's) 57.44 % M: 52 - 72 LV EF Biplane MOD 57.4 % LV Volume 122.04 mL M: 62 - 150 SV 99.94 mL LV Volume Index 49.20 mL/m2 M: 34 - 74 SV Index 40.26 mL/m2 LV Vol Biplane MOD 174.0 mL FS 29.50 % M-Mode TAPSE 3.03 cm (M/F) >1.7 LV Diastology MV E' medial 0.068 (>0.07 m/s) E/A Ratio 1.0 LV E/e MED 11.50 (<14) MV E Vmax 0.79 (0.4-1.3 m/s) MV E' lateral 0.102 (>0.1 m/s) MV A Vmax 0.80 (0.4-1.3 m/s) LV E/e LAT 7.70 (<14) MV E/A Ratio 0.97 MV E/E' medial 11.50 MV E/E' lateral 7.74 Aortic Valve LVOT Area 3.97 cm2 AoV Area Vmax 2.63 cm2 LVOT Vmax 1.34 m/s AoV Area/ BSA (Vmax) 1.06 cm2/m2 LVOT Mean Joey. 0.83 m/s ARTIE Mean Joey. 2.57 cm2 LVOT Peak Grad 7.1 mmHg ARTIE Mean Joey. Index 1.03 cm2/m2 LVOT Mean Grad 3.3 mmHg LVOT VTI 0.273 m LVOT Diam s 2.20 cm AoV Vmax 2.02 m/s Velocity Ratio 0.66 AoV Mean Joey. 1.29 m/s AoV Peak Grad 16.3 mmHg LVOT SV 108.38 mL AoV Mean Grad 7.9 mmHg AoV VTI 0.362 m AoV Area VTI 2.99 cm2 AoV Area/ BSA (VTI) 1.21 cm/m2 Mitral Valve MV DT 251 (160-240 msec) MV PHT 73 msec MV Area PHT 3.03 cm2 MV VTI 0.436 m MV Area VTI 2.49 (4.0-6.0 cm2) Pulmonary Valve PV Vmax 1.19 (0.5-1.5 m/s) RVOT Peak Gr. 2.51 mmHg PV Peak Grad 5.6 mmHg RVOT Mean Gr. 1.15 mmHg PV Mean Grad 2.5 mmHg RVOT VTI 0.187 m PV VTI 0.267 m RVOT Vmax 0.79 m/s Tricuspid Valve TR Peak Grad 18.2 mmHg TR Vmax 2.14 m/s RA Pressure 3.00 mmHg RVSP (TR) 21.3 mmHg
== END 2020-10-10 02:19 ==
PROVIDERS: PCP Family Medicine; Visit Provider Family Medicine
DX: I42.9 Cardiomyopathy, unspecified (principal); R07.9 Chest pain, unspecified; I10 Essential (primary) hypertension; R00.1 Bradycardia, unspecified; E78.5 Hyperlipidemia, unspecified; E11.9 Type 2 diabetes mellitus without complications; J44.9 Chronic obstructive pulmonary disease, unspecified; Z87.891 Personal history of nicotine dependence; Z82.49 Family history of ischemic heart disease and other diseases of the circulatory system
CPT/HCPCS: 78452; 93016; 93018; 93306; 93017; J2785

== ENCOUNTER → 2020-11-02 12:33 | Outpatient (BNVA) | payer OTHER, MEDICAID, SELFPAY | PROVIDERS: PCP Family Medicine; Referring Provider Family Medicine; Visit Provider Internal Medicine Cardiovascular Disease | DX: R00.1 Bradycardia, unspecified (principal); I10 Essential (primary) hypertension; Z71.2 Person consulting for explanation of examination or test findings | CPT/HCPCS: 99203; 99214 ==

== ENCOUNTER 2020-12-28 01:37 | Outpatient (CLI) | payer MEDICARE, MEDICAID, SELFPAY ==
--- NOTE | 2020-12-28 08:30 | DI.RAD_ITS ---
EXAM: XR HIP PELVIS ADULT BL CLINICAL HISTORY: B/L hip pain r>L,M25.559. TECHNIQUE: 2D digital imaging was performed. COMPARISON: No exams were available for comparison FINDINGS: There are no pelvic or hip fractures. No obvious degenerative changes in the hip joints. However, t here appear to be small bony excrescences at the level of the femoral neck is. These would be better assessed on cross-table lateral views to determine if there is CAM-type DEA. The actual hip joint s pace on either side is not obviously narrowed. Sacroiliac joints and symphysis pubis appear unremarkable. Bone density normal. IMPRESSION: DATA REPOSITORY: RADIATION DOSE DELIVERED:
== END 2020-12-28 01:57 ==
PROVIDERS: PCP Family Medicine; Visit Provider Family Medicine
DX: M25.551 Pain in right hip (principal); M25.552 Pain in left hip
CPT/HCPCS: 73521

== ENCOUNTER 2020-12-28 04:14 | Outpatient (CLI) | payer MEDICARE, MEDICAID, SELFPAY ==
[2020-12-28 14:55] LABS: ALT 29 U/L (16-63); AST 20 U/L (15-37); Albumin 3.7 g/dL (3.4-5.0); Alkaline Phosphatase 80 U/L (46-116); BUN 12 mg/dL (7-18); Bilirubin, Total 0.4 mg/dL (0.2-1.0); CREATININE 1.1 mg/dL (0.70-1.30); Calcium 8.6 mg/dL (8.5-10.1); Calculated LDL 94 mg/dL (<100); Chloride 106 mmol/L (98-107); Cholesterol 155 mg/dL (<200); Glucose 91 mg/dL (74-106); HDL Cholesterol 42 mg/dL (40-60); Potassium 4.1 mmol/L (3.5-5.1); Sodium 142 mmol/L (136-145); TSH (W/Ref FT4) 1.89 uIU/mL (0.36-3.74); Total Protein 7.3 g/dL (6.4-8.2); Triglyceride 98 mg/dL (<150)
[2020-12-28 22:44] LABS: PSA, Diagnostic 0.1 ng/mL (0.0-3.5)
== END 2020-12-28 04:15 | disposition home or self-care (01) ==
LOC: LBO 04:14
PROVIDERS: PCP Family Medicine; Visit Provider Family Medicine
DX: I10 Essential (primary) hypertension (principal); E11.9 Type 2 diabetes mellitus without complications; E03.9 Hypothyroidism, unspecified; E78.5 Hyperlipidemia, unspecified; F32.9 Major depressive disorder, single episode, unspecified; R32 Unspecified urinary incontinence; G25.81 Restless legs syndrome; M25.552 Pain in left hip; M25.551 Pain in right hip
CPT/HCPCS: 36415; 73521; 80053; 80061; 83036; 84153; 84443

== ENCOUNTER 2020-12-30 04:03 | Outpatient (CLI) | payer MEDICARE, MEDICAID, SELFPAY ==
--- NOTE | 2020-12-30 | DI.RAD_ITS ---
EXAM: XR HIP LT 1V CLINICAL HISTORY: f/u previous xray, hiP PAIN TECHNIQUE: COMPARISON: CR XR HIP PELVIS ADULT BL from 12/28/2020 CR XR HIP RT 1V from 12/30/2020 FINDINGS: Cross-table lateral views of both hips were obtained to evaluate the possibility of femoroacetabular impingement. Femoral necks show normal anatomy as visualized, no direct evidence of DEA. No other s ignificant findings. IMPRESSION: RADIATION DOSE DELIVERED: Total DLP
== END 2020-12-30 04:23 ==
PROVIDERS: PCP Family Medicine; Visit Provider Family Medicine
DX: M25.551 Pain in right hip (principal); M25.552 Pain in left hip
CPT/HCPCS: 73501

== ENCOUNTER 2021-05-05 03:51 | Outpatient (CLI) | payer MEDICARE, MEDICAID, SELFPAY ==
--- NOTE | 2021-05-05 08:30 | DI.CTLCSR_ITS ---
Exam(s) CT CHEST LUNG CANCER SCREEN EXAM: CT CHEST LUNG CANCER SCREEN CLINICAL HISTORY: Screening for lung cancer, FORMER SMOKER, Z87.891 TECHNIQUE: CT examination of the chest was performed utilizing low-dose lung cancer screening protoc ol. COMPARISON: CT CT CHEST LUNG CANCER SCREEN from 11/19/2019 FINDINGS: Images obtained through the upper abdomen show unremarkable appearance of visualized portions of the liver and spleen. There is no mediastinal or hilar adenopathy. Mediastinal vascular structures appear intact by noncon trast criteria. Tracheobronchial tree appears intact. No pleural effusion or pleural-based mass. The lungs are clear with no significant intrapulmonary nodule identified. IMPRESSION: Negative LDCT of the chest. Lung RADS Cat 1 - Negative: No nodules and definitely benign nodules Continue annual screening with LDCTin 12 months. RADIATION DOSE DELIVERED: 95.11mGy.cm Total DLP CTDIvol 95.11mGy.cm Total DLP RADIATION OPTIMIZATION: All CT scans at this facility use at least one of these dose optimization te chniques: automated exposure control; mA and/or kV adjustment per patient size (includes targeted exa ms where dose is matched to clinical indication); or iterative reconstruction.
--- NOTE | 2021-05-05 08:30 | DI.RAD_ITS ---
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 TECHNIQUE: 2D digital imaging was performed. COMPARISON: No exams were available for comparison FINDINGS: The odontoid is intact. The lateral masses are well aligned. Postsurgical changes of fusion of the C4 through C7 vertebral bodies is noted. No acute fracture or subluxation. There is straightening o f the normal cervical lordosis. There are endplate osteophytes at C3-C4 as well as facet hypertrophy . There is narrowing of the neural foramen bilaterally at C3-C4. Prevertebral soft tissues are unre markable. At C7-T1 there is disc space narrowing and endplate osteophytes. IMPRESSION: 1. Moderate degenerative changes in the cervical spine particularly at C3-C4 and C7-T1. 2. C4 through C7 fusion. DATA REPOSITORY: RADIATION DOSE DELIVERED:
--- NOTE | 2021-05-05 08:30 | DI.RAD_ITS ---
Exam(s) XR SHOULDER RT COMPLETE 2+V EXAM: XR SHOULDER RT COMPLETE 2+V CLINICAL HISTORY: r shoulder pain, M25.519. TECHNIQUE: 2D digital imaging was performed. COMPARISON: CR XR SHOULDER RT COMPLETE 2+V from 05/02/2020 FINDINGS: BONES: No acute fracture is present. No bony destructive lesion is seen. JOINTS: No dislocation present. There are mild hypertrophic changes at the acromioclavicular joint. The glenohumeral joint is well maintained. SOFT TISSUE: Normal. IMPRESSION: Mild degenerative changes of the right AC joint. DATA REPOSITORY: RADIATION DOSE DELIVERED:
== END 2021-05-05 04:11 ==
PROVIDERS: PCP Family Medicine; Visit Provider Family Medicine
DX: Z12.2 Encounter for screening for malignant neoplasm of respiratory organs; M19.011 Primary osteoarthritis, right shoulder; M50.00 Cervical disc disorder with myelopathy, unspecified cervical region; M47.13 Other spondylosis with myelopathy, cervicothoracic region; M43.22 Fusion of spine, cervical region; Z87.891 Personal history of nicotine dependence
CPT/HCPCS: 71271; 72050; 73030

== ENCOUNTER 2021-09-25 03:30 | Outpatient (CLI) | payer MEDICARE, MEDICAID, SELFPAY ==
[2021-09-25 15:29] LABS: Hemoglobin A1C 5.6 % (<5.7)
[2021-09-25 16:30] LABS: ALT 26 U/L (16-63); AST 19 U/L (15-37); Albumin 3.9 g/dL (3.4-5.0); Alkaline Phosphatase 86 U/L (46-116); Anion Gap 9.4 mmol/L (3-11); BUN 15 mg/dL (7-18); Bilirubin, Total 0.4 mg/dL (0.2-1.0); CO2 24.6 mmol/L (21.0-32.0); Calcium 8.6 mg/dL (8.5-10.1); Chloride 105 mmol/L (98-107); Glucose 83 mg/dL (74-106); Potassium 4.2 mmol/L (3.5-5.1); Sodium 139 mmol/L (136-145); Total Protein 7.3 g/dL (6.4-8.2)
== END 2021-09-25 03:31 | disposition home or self-care (01) ==
LOC: LBO 03:30
PROVIDERS: PCP Family Medicine; Visit Provider Family Medicine
DX: I10 Essential (primary) hypertension (principal); E11.9 Type 2 diabetes mellitus without complications; G89.4 Chronic pain syndrome
CPT/HCPCS: 36415; 80053; 83036

== ENCOUNTER 2021-10-17 17:49 | Outpatient (REF) | payer MEDICARE, MEDICAID, SELFPAY ==
[2021-10-17 19:36] LABS: *AMPHETAMINES SCREEN URINE Negative (Negative); *BARBITURATES SCREEN URINE Negative (Negative); *BENZODIAZEPINES SCREEN URINE Negative (Negative); Cannabinoids THC Negative (Negative); Cocaine Screen,Urine Negative (Negative); METHADONE URINE SCREEN Negative (Negative); OPIATES URINE SCREEN Negative (Negative); Tricyclic Antidepressants Negative (Negative)
== END 2021-10-17 17:50 | disposition home or self-care (01) ==
LOC: LBN 17:49
PROVIDERS: PCP Family Medicine; Visit Provider Family Medicine
DX: G89.4 Chronic pain syndrome (principal)
CPT/HCPCS: 80307

== ENCOUNTER → 2021-11-09 13:03 | Outpatient (BNVA) | payer MEDICARE, MEDICAID, SELFPAY | PROVIDERS: PCP Family Medicine; Referring Provider Family Medicine; Visit Provider Internal Medicine Cardiovascular Disease | DX: R00.1 Bradycardia, unspecified (principal); I10 Essential (primary) hypertension | CPT/HCPCS: 99213 ==

== ENCOUNTER 2022-06-14 03:18 | Outpatient (CLI) | payer MEDICARE, MEDICAID, SELFPAY ==
[2022-06-14 12:54] LABS: ALT 43 U/L (16-63); AST 25 U/L (15-37); Albumin 3.9 g/dL (3.4-5.0); Alkaline Phosphatase 78 U/L (46-116); Anion Gap 8.2 mmol/L (3-11); BUN 15 mg/dL (7-18); Bilirubin, Total 0.5 mg/dL (0.2-1.0); CO2 26.8 mmol/L (21.0-32.0); CREATININE 1.1 mg/dL (0.70-1.30); Calculated LDL 119 mg/dL (<100); Chloride 105 mmol/L (98-107); Cholesterol 190 mg/dL (<200); Estimated GFR 77.81 (mL/min/1.73m2); Glucose 100 mg/dL (74-106); HDL Cholesterol 44 mg/dL (40-60); Potassium 4.6 mmol/L (3.5-5.1); Sodium 140 mmol/L (136-145); TSH (W/Ref FT4) 2.04 uIU/mL (0.36-3.74); Total Protein 8.5 g/dL (6.4-8.2); Triglyceride 139 mg/dL (<150)
[2022-06-14 22:44] LABS: PSA, Diagnostic <0.1 ng/mL (<=3.5)
[2022-06-15 09:13] LABS: Lab Add On Test DONE
[2022-06-18 12:27] LABS: Albumin 52.7 % (55.8-66.1); Albumin g/dL 4.4 g/dL (3.6-5.2); Comment (See Note); Total Protein 8.4 g/dL (6.3-8.2)
[2022-06-19 15:05] LABS: Immunotyping, Serum (See Note)
== END 2022-06-14 03:19 | disposition home or self-care (01) ==
LOC: LOS 03:18
PROVIDERS: PCP Family Medicine; Visit Provider Family Medicine
DX: E03.9 Hypothyroidism, unspecified (principal); E78.5 Hyperlipidemia, unspecified; I10 Essential (primary) hypertension; N40.0 Benign prostatic hyperplasia without lower urinary tract symptoms; R33.9 Retention of urine, unspecified; E11.9 Type 2 diabetes mellitus without complications; M54.59 Other low back pain
CPT/HCPCS: 36415; 80053; 80061; 84153; 84165; 84443; 86320

== ENCOUNTER → 2022-07-18 00:59 | Outpatient (CLI) | payer MEDICARE, MEDICAID, SELFPAY ==
--- NOTE | 2022-07-18 07:30 | DI.RAD_ITS ---
Exam(s) XR CERVICAL SPINE COMP 4-5V EXAM: XR CERVICAL SPINE COMP 4-5V CLINICAL HISTORY: neck pain after object fell on head,M50.00 TECHNIQUE: COMPARISON: CR XR CERVICAL SPINE COMP 4-5V from 05/05/2021 FINDINGS: Eight views were obtained. There is a cervical fusion extending from C4 through C7 with anterior and posterior fusion masses and fixation wire in the posterior elements. Flexion and extension views ar e unremarkable. No fracture seen. IMPRESSION: RADIATION DOSE DELIVERED: Total DLP
== END ==
PROVIDERS: PCP Family Medicine; Visit Provider Family Medicine
DX: M50.021 Cervical disc disorder at C4-C5 level with myelopathy (principal); M50.022 Cervical disc disorder at C5-C6 level with myelopathy; M50.023 Cervical disc disorder at C6-C7 level with myelopathy
CPT/HCPCS: 72050

== ENCOUNTER → 2022-11-08 13:32 | Outpatient (BNVA) | payer MEDICARE, MEDICAID, SELFPAY | PROVIDERS: PCP Family Medicine; Visit Provider Internal Medicine Cardiovascular Disease | DX: I42.9 Cardiomyopathy, unspecified (principal); R00.1 Bradycardia, unspecified | CPT/HCPCS: 93005; 99213 ==

== ENCOUNTER 2022-11-08 13:35 | Outpatient (CLI) | payer MEDICARE, MEDICAID, SELFPAY ==
--- NOTE | 2022-11-08 13:30 | RT.EKG_ITS ---
APPROVED REPORT Exam: Resting ECG Reason for Exam: cardiomyopaty, bradycardia Patient Location: O HR:73 bpm ECG Measurements Heart Rate 73 AXIS AZ 163 P 58 QRSd 104 QRS -84 QT 376 T 65 QTc 415 Conclusion Sinus rhythm...normal P axis, V-rate 50- 99 Left anterior fascicular block...axis(240,-40), init forces inf Early transition
== END 2022-11-08 13:36 | disposition home or self-care (01) ==
LOC: DI.CARD 13:35
PROVIDERS: PCP Family Medicine; Visit Provider Internal Medicine Cardiovascular Disease
DX: I42.9 Cardiomyopathy, unspecified (principal); R00.1 Bradycardia, unspecified; R94.31 Abnormal electrocardiogram [ECG] [EKG]; I44.4 Left anterior fascicular block
CPT/HCPCS: 93010

== ENCOUNTER 2022-12-31 14:41 | Outpatient (CLI) | payer MEDICARE, MEDICAID, SELFPAY ==
--- NOTE | 2022-12-31 14:30 | RT.EKG_ITS ---
APPROVED REPORT Exam: Resting ECG Reason for Exam: chest discomfort Patient Location: O HR:64 bpm ECG Measurements Heart Rate 64 AXIS NV 171 P 35 QRSd 106 QRS -62 QT 399 T 60 QTc 412 Conclusion Sinus rhythm...normal P axis, V-rate 50- 99 Incomplete RBBB and LAFB...axis(240,-40), S>R II III aVF
== END 2022-12-31 14:42 | disposition home or self-care (01) ==
LOC: DI.CM 14:42
PROVIDERS: PCP Family Medicine; Visit Provider Physician Assistant
DX: R07.89 Other chest pain (principal)
CPT/HCPCS: 93010

== ENCOUNTER 2023-01-09 01:18 | Outpatient (CLI) | payer MEDICARE, MEDICAID, SELFPAY ==
--- NOTE | 2023-01-09 07:45 | DI.CT_ITS ---
Exam(s) CT CHEST W EXAM: CT CHEST W CLINICAL HISTORY: chest tightness,other chest pain, r07.89 TECHNIQUE: Imaging Protocol: Axial computed tomography images with coronal and sagittal reformatted images were created and reviewed CONTRAST MATERIAL: Intravenous: Omnipaque 350 Contrast volume:70 ml. COMPARISON: CT CT CHEST LUNG CANCER SCREEN from 05/05/2021 FINDINGS: Pulmonary parenchyma: No consolidation. No dominant measurable mass. Tracheobronchial tree: No bronchiectasis or mucous plugging. Mediastinum and Marie: No dominant adenopathy or fluid collection. Pleura: No effusion or pneumothorax. Heart: The heart is not dilated. No coronary artery calcifications are seen. Aorta: Thoracic aorta non-dilated. Upper abdomen: Unremarkable. Bones: Upper thoracic scoliosis and prominent endplate osteophytes throughout. No compression fractu res. Soft tissues: Unremarkable. IMPRESSION: No acute abnormality. RADIATION DOSE DELIVERED: 806.9mGy.cm Total DLP DATA REPOSITORY: All CT scans at this facility are submitted to the National Radiology Data Registry (NRDR) Dose Index Registry (DIR) with the [employer] ([employer]). RADIATION OPTIMIZATION: All CT scans at this facility use at least one of these dose optimization te chniques: automated exposure control; mA and/or kV adjustment per patient size (includes targeted exa ms where dose is matched to clinical indication); or iterative reconstruction.
[2023-01-09] MEDS: Omnipaque 350 MG/ML 500 ML BTL-Imaging package IJ (11:41)
[2023-01-09] MEDS: Normal Saline - Diluent 50 ML VIAL IJ (11:42)
== END 2023-01-09 01:38 ==
LOC: DI 01:18
PROVIDERS: PCP Family Medicine; Visit Provider Physician Assistant
DX: R07.89 Other chest pain (principal); Z01.812 Encounter for preprocedural laboratory examination; I10 Essential (primary) hypertension
CPT/HCPCS: 71260; 82565

== ENCOUNTER 2023-01-28 00:18 | Outpatient (CLI) | payer MEDICARE, MEDICAID, SELFPAY ==
--- NOTE | 2023-01-28 07:00 | DI.NM_ITS ---
APPROVED REPORT Exam: Pharmacologic Patient Location: Out-Patient Room/Bed: Stress Nurse: Betty Manrique RN Ordering Provider:YOSEF VILLAVICENCIO, Contact Number: [phone] BMI: 40.49 Baseline Rhythm: Sinus Bradycardia Comment: Incomplete RBBB and LAFB Indications: Chest tightness, cardiomyopathy, other chest pain Medical History Medical History: Hypertension, hyperlipidemia, diabetes, obesity, smoker (former), COPD, cardiomyopat hy, bradycardia, SAEID, hypothyroidism, hearing loss, depression Cardiac Medications: Aspirin Allergies: Statins Cardiac Risk Factors: Hypertension, hyperlipidemia, diabetes, obesity, smoker (former), COPD, family hx Previous Cardiac Procedures: None Pretest Chest Pain Characteristics: 5/10 midsternal chest tightness Exercise History: Sedentary Physical Disabilities: Back and legs Lung Sounds: Clear to auscultation Heart Sounds: Regular Stress Test Details Test: Pharmacologic stress was paired with low level exercise. Reason for pharmacologic stress test: . Nuclear Acquisition: Rest Tc-99m/Stress Tc-99m 1 day Rest Isotope: Tc-99m Sestamibi. Dose: 14.0 Date: 01/28/2023 Injection Time: 1115 Stress Isotope: Tc-99m Sestamibi. Dose: 45.0 Date: 01/28/2023 Injection Time: 1322 HR Resting HR Supine: 53 bpm Max Heart Rate (APMHR): 161.908350 bpm Resting HR Standin bpm Target HR (85% APMHR): 136.276272 bpm Max HR Achieved: 99 bpm % of APMHR: 61.49 Recovery HR: 67 bpm BP Resting BP Supine: 140/88 mmHg Resting BP Standin/98 mmHg Max BP: 152/78 mmHg Recovery BP: 152/88 mmHg ECG Resting ECG: Sinus Bradycardia, incomplete RBBB and LAFB Ectopy: None Stress ECG: Sinus Rhythm, incomplete RBBB and LAFB ST Change: Nondiagnostic low heart rate Arrhythmia: Rare PVC Recovery ECG: Sinus Rhythm, incomplete RBBB and LAFB Recovery ST Change: Nondiagnostic low heart rate Recovery Arrhythmia: None Clinical Stress Symptoms: General Fatigue, Chest pain, Dyspnea Angina Score: Non-Limiting Rate Pressure Product: 15806 Stress ECG Conclusion 1. Resting electrocardiogram showed left anterior fascicular block and incomplete right bundle branch block 2. Patient underwent testing using combination of low-level exercise and pharmacologic stress with re gadenoson 3. The electrocardiographic portion of the test was nondiagnostic due to inadequate heart rate 4. There were no significant dysrhythmias 5. See MPI report Stress Test Summary STAGE HR BP SpO2 Symptoms NOTES Supine 53 140/88 95% 5/10 midsternal chest tightness Standing 64 152/98 95% 1 min post Lexiscan injection 98 152/78 98% 8/10 midsternal chest tightness, moderate SOB 3 min post Lexiscan injection 68 152/88 98% 6/10 midsternal chest tightness 6 min post Lexiscan injection 67 Chest tightness resumed to baseline, SOB resolved Pharmacologic stress was paired with low level exercise due to patient's physical limitation. Patient ambulated on treadmill at 0.9 mph and 0% grade during Lexiscan administration. Tolerated testing wel l. MPI Conclusion Myocardial perfusion is normal. There is no ischemia or evidence of prior infarction EF is 48%, wall motion is normal Radiologist Interpretation Radiologist Interpretation by: Samson Coon MD Interpretation Date/Time: 01/29/2023 08:23:02
[2023-01-28] MEDS: Regadenoson 0.4 MG/5 ML SYR IVP (13:45)
== END 2023-01-28 00:38 ==
LOC: DI 00:18
PROVIDERS: PCP Family Medicine; Visit Provider Physician Assistant
DX: I42.9 Cardiomyopathy, unspecified (principal); R07.89 Other chest pain
CPT/HCPCS: 78452; 93016; 93018; 93017; J2785

== ENCOUNTER → 2023-03-08 13:54 | Outpatient (BNVA) | payer MEDICARE, MEDICAID, SELFPAY | PROVIDERS: PCP Family Medicine; Referring Provider Family Medicine; Visit Provider Urology | DX: R39.89 Other symptoms and signs involving the genitourinary system (principal); M54.50 Low back pain, unspecified; R10.9 Unspecified abdominal pain | CPT/HCPCS: 81003; 99214 ==

== ENCOUNTER 2023-04-17 01:23 | Outpatient (CLI) | payer MEDICARE, MEDICAID, SELFPAY ==
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
== END 2023-04-17 01:43 ==
LOC: DI 01:24
PROVIDERS: PCP Family Medicine; Visit Provider Urology
DX: N20.0 Calculus of kidney (principal); R10.9 Unspecified abdominal pain
CPT/HCPCS: 76770

== ENCOUNTER → 2023-04-19 13:58 | Outpatient (BNVA) | payer MEDICARE, MEDICAID, SELFPAY | PROVIDERS: PCP Family Medicine; Referring Provider Family Medicine; Visit Provider Urology | DX: R39.89 Other symptoms and signs involving the genitourinary system (principal); R32 Unspecified urinary incontinence | CPT/HCPCS: 99213 ==

== ENCOUNTER → 2023-05-24 00:25 | Outpatient (CLI) | payer OTHER, MEDICARE, MEDICAID, SELFPAY ==
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
== END ==
PROVIDERS: PCP Family Medicine; Visit Provider Nurse Practitioner Family
DX: M16.0 Bilateral primary osteoarthritis of hip; M19.011 Primary osteoarthritis, right shoulder; M19.012 Primary osteoarthritis, left shoulder
CPT/HCPCS: 73521; 72050; 72110; 73030

== ENCOUNTER → 2023-06-05 01:14 | Outpatient (CLI) | payer MEDICARE, MEDICAID, SELFPAY ==
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
== END ==
PROVIDERS: PCP Family Medicine; Visit Provider Family Medicine
DX: M18.11 Unilateral primary osteoarthritis of first carpometacarpal joint, right hand (principal)
CPT/HCPCS: 73130

== ENCOUNTER 2023-08-26 04:39 | Outpatient (CLI) | payer MEDICARE, MEDICAID, SELFPAY ==
[2023-08-26 13:45] LABS: HCT 46.5 % (40.0-50.0); HGB 15.5 g/dL (13.5-17.5); MCH 29.6 pg (27.0-33.0); MCHC 33.3 % (32.0-36.0); MCV 89 fL (80-95); MPV 9.5 fL (8.0-11.0); Platelet Count 243 10^3/uL (130-400); RBC 5.24 10^6/uL (4.36-5.78); RDW 13.2 % (11.8-14.1); RDW-SD 42.9 fL; WBC 8.02 10^3/uL (4.4-10.8)
[2023-08-26 14:21] LABS: ALT 43 U/L (16-63); AST 22 U/L (15-37); Albumin 3.7 g/dL (3.4-5.0); Alkaline Phosphatase 83 U/L (46-116); Anion Gap 8.8 mmol/L (3-11); BUN 15 mg/dL (7-18); Bilirubin, Total 0.4 mg/dL (0.2-1.0); CO2 26.2 mmol/L (21.0-32.0); CREATININE 1.1 mg/dL (0.70-1.30); Calcium 9.7 mg/dL (8.5-10.1); Calculated LDL 97 mg/dL (<100); Chloride 104 mmol/L (98-107); Cholesterol 153 mg/dL (<200); Estimated GFR 77.33 (mL/min/1.73m2); Glucose 104 mg/dL (74-106); HDL Cholesterol 43 mg/dL (40-60); Potassium 3.9 mmol/L (3.5-5.1); Sodium 139 mmol/L (136-145); TSH (W/Ref FT4) 1.85 uIU/mL (0.36-3.74); Triglyceride 66 mg/dL (<150)
== END 2023-08-26 04:40 | disposition home or self-care (01) ==
LOC: LBO 04:39
PROVIDERS: PCP Family Medicine; Visit Provider Family Medicine
DX: I10 Essential (primary) hypertension (principal); K29.60 Other gastritis without bleeding; E03.9 Hypothyroidism, unspecified
CPT/HCPCS: 36415; 80053; 80061; 85027; 84443

== ENCOUNTER 2023-09-26 16:26 | Outpatient (REF) | payer MEDICARE, MEDICAID, SELFPAY ==
[2023-09-26 20:30] LABS: Source Nasopharynx
[2023-09-26 21:08] LABS: COVID-19 PCR Negative (Negative)
== END 2023-09-26 16:27 | disposition home or self-care (01) ==
LOC: NCHCN 16:26
PROVIDERS: PCP Family Medicine; Visit Provider Physician Assistant Medical
DX: R05.9 Cough, unspecified (principal)
CPT/HCPCS: 87635

== ENCOUNTER → 2023-10-03 14:11 | Outpatient (BNVA) | payer MEDICARE, MEDICAID, SELFPAY | PROVIDERS: PCP Family Medicine; Referring Provider Family Medicine; Visit Provider Physical Therapy Assistant | DX: Z12.11 Encounter for screening for malignant neoplasm of colon (principal); Z86.010 Personal history of colon polyps ==

== ENCOUNTER 2023-10-23 09:16 | Day surgery (SDC) | payer MEDICARE, MEDICAID, SELFPAY ==
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
[2023-10-23 09:20] VITALS: BP 148/92; PULSE 70; RESP 16; TEMP 36.5; O2SAT 97
[2023-10-23] MEDS: Lactated Ringers 1,000 ML 80 ML IV (10:09)
[2023-10-23 10:39] VITALS: BMI 41.6
--- NOTE | 2023-10-23 10:52 | BOWEL_PTH ---
PATIENT: Adolfo Lezama Sr LOC: [facility] U#:[id number] AGE/SX: 57/M ROOM: RE10/23/[address]: Rony Marie : 1965 BED: DIS: 10/23/2023 SPEC #: [id number] RECD: 10/23/23 12:51 STATUS: CHERYL HERBERT #: [id number] BOGDAN: 10/23/23 10:[address]: Rony Marie DEPT: Surgical Specimen RECD BY: Meghan Anderson ENTERED: 10/23/23 12:52 SP TYPE: Bowel OTHR DR: Kelsey Howard MD, DC Tissues: 1 - STOMACH BIOPSY 2 - STOMACH BIOPSY 3 - BIOPSY BOWEL Procedures: GROSS AND MICRO LEVEL 4 Comments: [id number]
[2023-10-23 11:19] VITALS: BP 124/87; PULSE 72; RESP 18; TEMP 36.5; O2SAT 96
--- NOTE | 2023-10-23 11:26 | W.ANESPOSTOP ---
Postoperative Evaluation Date, Time and Location Date Performed: 10/23/23 Time Performed: 11:26 Patient Location: Day Surgery Unit Vital Signs Most Recent Imported Vital Signs: Most Recent Vital Signs Temp Pulse Resp BP Pulse Ox 36.5 C 72 18 124/87 96 10/23/23 11:19 10/23/23 11:19 10/23/23 11:19 10/23/23 11:19 10/23/23 11:19 Pain Score Most Recent Pain Score: Most Recent Pain Score Pain Level 0 10/23/23 11:19 Assessment Mental Status: Awake (Alert & Oriented to Patient Baseline) Airway and Respiratory Function: Patent airway with normal (patient baseline) respiratory exam Cardiovascular Function: Hemodynamically Stable Hydration Status: Adequately Hydrated Nausea & Vomiting: No Nausea or Vomiting Pain: Pt. Denies Any Pain Peripheral Nerve Block: Patient did not receive a nerve block
--- NOTE | 2023-10-23 11:28 | W.PM.ENDDOP ---
Date of service: 10/23/23 Time of Service: 11:28 Endoscopy Report PROCEDURE DESCRIPTION: PROCEDURES PERFORMED: 1. EGD with biopsies 2. Cold forceps polypectomy PREOPERATIVE DIAGNOSIS: GERD POSTOPERATIVE DIAGNOSIS: Gastric polyps SURGEON: Mansoor Marie MD INDICATION FOR PROCEDURE: 57-year-old man states that he has acid reflux all the time. He wakes up in the night tasting vomit in his mouth. Sometimes he regurgitates food chunks. FINDINGS: D2/D3 = normal D1/bulb = normal - no ulcers or inflammation Pylorus = normal Antrum = normal appearance, no ulcers or inflammation, cold forceps biopsies were taken to rule out H. pylori routinely Body = normal appearance Fundus = normal, 10?20 benign?appearing, sub-cm polyps Cardia = normal Hiatus = no hiatal hernia Distal esophagus = no inflammation, no stricture, no esophagitis, no Pereyra's. I did not take biopsies because it appeared completely normal. Mid esophagus = normal Proximal esophagus/hypopharynx/vocal cords = normal SURVEILLANCE-INTERVAL/FOLLOW-UP: Acid reflux is a secondary problem to morbid obesity and the vast majority of cases. This patient has a BMI of 42 and until his BMI is under 30, acid reflux would be considered secondary to being morbidly obese. He does not need a repeat EGD. Specimens: Yes EBL: Minimal COMPLICATIONS: None Procedure in detail: The patient gave written consent and was in agreement with the indications, the potential risks as well as the benefits of the procedure. The patient was taken to the endoscopy suite and laid on their left side. Anesthesia was given which was tolerated well. We performed a timeout and we are in agreement I started the procedure. A well-lubricated endoscope was gently and carefully advanced down the esophagus, into the stomach the scope was and through the pylorus into the duodenum. The scope was then slowly withdrawn with the above-noted findings/interventions. The patient tolerated the procedure well and was then turned for colonoscopy (see separate procedure note).
--- NOTE | 2023-10-23 11:32 | COLE_ITS ---
Date of service: 10/23/23 Time of Service: 11:32 Colonoscopy Report Procedure Description: PROCEDURES PERFORMED: 1. Colonoscopy with cold forceps polypectomy PREOPERATIVE DIAGNOSIS: Surveillance colonoscopy POSTOPERATIVE DIAGNOSIS: Colon polyps, minimal diverticular changes SURGEON: Mansoor Marie MD INDICATION for procedure: The patient is a 57-year-old man who has no symptoms or complaints. He has a history of adenomatous polyps in the past 5-6 years ago. He does not have a family history of colon cancer. FINDINGS: In the ascending colon a small 2-3 mm sessile polyp was removed with cold forceps technique. No other polyps were seen. Some very minimal/mild d iverticular changes are present in the sigmoid colon. SURVEILLANCE interval/FOLLOW-UP: 7-10 years unless sessile serrated or villous histology (not suspected) in which case it would be 3 years. SPECIMENS: yes EBL: Minimal COMPLICATIONS: None QUALITY of prep: Excellent Procedure in detail: The patient gave written consent and was in agreement with the indications, the potential risks as well as the benefits of the procedure. The patient was turned from upper endoscopy (see separate procedure note) and anesthesia was continued and after the colonoscopy portion of the procedure. Digital rectal and visual examination was performed and grossly within normal limits. A well-lubricated flexible colonoscope was then introduced and passed without any notable difficulty all the way to the cecum identified by the ileocecal valve and the appendiceal orifice. The scope was then slowly withdrawn with the above-noted findings. The patient tolerated the procedure well and was taken to the PACU in hemodynamically stable condition.
--- NOTE | 2023-10-23 11:34 | W.PM.DSUDISC ---
Date of service: 10/23/23 Time of Service: 11:34 Discharge Plan Disposition Patient Disposition: Home Condition: Good Discharge Details Attending Provider: Rony Marie Primary Care Provider: Kelsey Howard Home Meds and New Rx's Prescriptions: No Action (DME) Adult depends XL Mens XL See Rx Instructions .Route .MEDSUPPLY Qty: 120 0RF Rx Instructions: As directed. Dx: chronic diarrhea lidocaine 4 % adhesive patch,medicated 1 patch topical DAILY PRN (Reason: pain) Qty: 15 0RF ammonium lactate 12 % cream 1 applic TP BID bupropion HCl 150 mg tablet extended release 24 hr 150 mg PO QAM Metamucil Sugar-Free (aspart) 3.4 gram/5.8 gram powder 1.65 g PO DAILY Qty: 283 8RF cyclobenzaprine 5 mg tablet 5 mg PO BID PRN (Reason: muscle spasm) Qty: 30 0RF losartan 50 mg tablet 50 mg PO DAILY Qty: 90 4RF doxepin 10 mg capsule 10 mg PO QHS bisacodyl [Dulcolax (bisacodyl)] 5 mg tablet,delayed release (DR/EC) 5 mg PO ONCE Qty: 4 0RF Rx Instructions: Take per colonoscopy instructions provided by ordering providers office polyethylene glycol 3350 17 gram/dose powder 17 g PO ONCE Qty: 238 0RF Rx Instructions: Take per colonoscopy instructions provided by ordering providers office latanoprost 2.5 ML drops 1 drp OU HS buspirone 15 MG tablet 2 tab PO TID Qty: 270 4RF bupropion HCl [Wellbutrin XL] 300 mg tablet extended release 24 hr 300 mg PO QAM Desitin 40 % paste 1 applic TP TID PRN (Reason: skin irritation) Qty: 113 0RF Hold Instructions: Pt Stopped/Never Started clotrimazole 1 % solution 1 applic TP BID Qty: 30 2RF tolterodine [Detrol LA] 2 mg capsule,extended release 24hr 2 mg PO DAILY Qty: 90 4RF finasteride [Proscar] 5 mg tablet 5 mg PO DAILY Qty: 90 4RF levothyroxine 50 mcg tablet 50 mcg PO DAILY Qty: 90 7RF ropinirole 1 mg tablet 1 mg PO QHS Qty: 90 5RF tamsulosin 0.4 mg capsule 0.8 mg PO DAILY Qty: 180 4RF omeprazole 20 mg tablet,delayed release (DR/EC) 20 mg PO DAILY Qty: 90 12RF Lactobacillus acidophilus 100 million cell capsule 100 mmu cells PO BID Qty: 180 6RF cyanocobalamin (vitamin B-12) [Vitamin B-12] 1,000 mcg tablet extended release 1,000 mcg PO DAILY Qty: 90 12RF Hold Instructions: Pt Stopped/Never Started Lactaid Fast Act 9,000 unit tablet,chewable 9,000 unit PO ac and prn Qty: 90 11RF vilazodone [Viibryd] 40 mg tablet 40 mg PO DAILY aspirin [Ecotrin Low Strength] 81 mg tablet,delayed release (DR/EC) 81 mg PO DAILY Qty: 90 12RF ketoconazole 2 % shampoo 1 applic TP .Q1W Qty: 120 12RF Rx Instructions: 30mL on head docusate sodium [Colace] 100 mg capsule 100 mg PO DAILY Qty: 90 3RF acetaminophen 500 mg tablet 1,000 mg PO TID Qty: 270 3RF ketoconazole 2 % cream 1 applic topical DAILY Qty: 60 2RF Rx Instructions: 1-2 grams to skin folds daily as needed ibuprofen 400 mg tablet 400 mg PO TID PRN (Reason: pain) Qty: 90 3RF Discharge Instructions Additional Instructions: FINDINGS: There were no findings on upper endoscopy of concern. Your symptoms are from being overweight and in order to get rid of them you need to lose weight. On colonoscopy a small polyp was found and removed. This is nothing to worry about. You probably can have another colonoscopy in 7 to 10 years. Pathology results will dictate that and you will get called with those results. Stand Alone Forms: Colonoscopy Post Instructions Activity:: Activity as Tolerated Diet:: As Tolerated
[2023-10-23 12:00] VITALS: BP 146/96; PULSE 60; RESP 18; TEMP 36.6; O2SAT 96
== END 2023-10-23 12:15 | disposition home or self-care (01) ==
PROVIDERS: PCP Family Medicine; Visit Provider Student in an Organized Health Care Education/Training Program
PROC: (CPT 45380; principal; 2023-10-23 11:15)
DX: Z12.11 Encounter for screening for malignant neoplasm of colon (principal); K63.5 Polyp of colon; K57.30 Diverticulosis of large intestine without perforation or abscess without bleeding; K21.00 Gastro-esophageal reflux disease with esophagitis, without bleeding; G47.30 Sleep apnea, unspecified; I10 Essential (primary) hypertension
CPT/HCPCS: 45380; 43239; 123; 88305; 00123; J2704

== ENCOUNTER → 2023-11-07 13:07 | Outpatient (BNVA) | payer MEDICARE, MEDICAID, SELFPAY | PROVIDERS: PCP Family Medicine; Visit Provider Internal Medicine Interventional Cardiology | DX: R07.89 Other chest pain (principal); R00.1 Bradycardia, unspecified | CPT/HCPCS: 99213 ==

== ENCOUNTER 2024-01-07 04:54 | Outpatient (CLI) | payer MEDICARE, MEDICAID, SELFPAY ==
[2024-01-07 14:12] LABS: Hemoglobin A1C 5.8 % (<5.7)
[2024-01-07 14:32] LABS: Vitamin B12 1166 pg/mL (193-986)
== END 2024-01-07 04:55 | disposition home or self-care (01) ==
LOC: LBO 04:54
PROVIDERS: PCP Family Medicine; Visit Provider Family Medicine
DX: R74.8 Abnormal levels of other serum enzymes (principal); E11.9 Type 2 diabetes mellitus without complications
CPT/HCPCS: 36415; 82607; 83036

== ENCOUNTER 2024-03-11 19:46 | Outpatient (CLI) | payer OTHER, MEDICAID, SELFPAY ==
[2024-03-11 14:27] LABS: Abs Immature Grans 0.03 10^3/uL (0.0-0.06); Absolute Basophil Count 0.06 10^3/uL (0.0-0.2); Absolute Eosinophil Count 0.08 10^3/uL (0.0-0.7); Absolute Lymphocyte Count 1.96 10^3/uL (1.2-3.4); Absolute Monocyte Count 0.76 10^3/uL (0.1-0.8); Absolute Neutrophil Count 5.79 10^3/uL (1.2-6.7); Basophils % 0.7 %; Eosinophils % 0.9 %; HCT 44.9 % (40.0-50.0); Immature Grans % 0.3 %; Lymphocytes % 22.6 %; MCH 30.4 pg (27.0-33.0); MCHC 33.4 % (32.0-36.0); MCV 91 fL (80-95); MPV 9.5 fL (8.0-11.0); Monocytes % 8.8 %; Neutrophils % 66.7 %; Platelet Count 245 10^3/uL (130-400); RBC 4.94 10^6/uL (4.36-5.78); RDW 12.9 % (11.8-14.1); RDW-SD 43.5 fL; WBC 8.68 10^3/uL (4.4-10.8)
[2024-03-11 14:29] LABS: Bilirubin Negative (Negative); Blood Negative (Negative); Clarity Clear (Clear); Glucose Negative (Negative); Ketones Negative (Negative); Leukocyte Esterase Negative (Negative); Nitrite Negative (Negative); Urobilinogen 0.2 mg/dL (Up to 0.2); pH 5.5 (5-8)
== END 2024-03-11 19:47 | disposition home or self-care (01) ==
LOC: LBO 19:47
PROVIDERS: PCP Family Medicine; Visit Provider Family Medicine
DX: N52.9 Male erectile dysfunction, unspecified (principal); R10.31 Right lower quadrant pain; R10.32 Left lower quadrant pain; R30.0 Dysuria
CPT/HCPCS: 36415; 81003; 85025

== ENCOUNTER → 2024-04-16 00:23 | Outpatient (CLI) | payer OTHER, MEDICAID, SELFPAY ==
--- NOTE | 2024-04-16 08:56 | DI.CT_ITS ---
Exam(s) CT ABDOMEN PELVIS W EXAM: CT ABDOMEN PELVIS W CLINICAL HISTORY: abd and back pain, testicular pain,r10.9. TECHNIQUE: Imaging Protocol: Axial computed tomography images with coronal and sagittal reformatted images were created and reviewed CONTRAST MATERIAL: Intravenous: Omnipaque 350 Contrast volume:100 ml Oral: yes / COMPARISON: US US ABDOMEN from 01/01/2020 CT,NM,TMT NM MPI REST STRESS GRP from 01/28/2023 FINDINGS: ABDOMEN and PELVIS: Lung Bases: No acute findings. Liver: Mild hepatic steatosis. No suspicious mass. Gallbladder and biliary tract: No radiodense calculus. No biliary dilation. Pancreas: Normal density. No abnormal calcifications or inflammatory process. No evidence of mass. Spleen: Normal. Kidneys: Normal size, contour and axis. No radiodense stones. No obstructive uropathy. No suspicious masses seen. Stable cyst right kidney. Adrenal glands: No masses seen. Vasculature: Mild dilatation of the distal abdominal aorta to 3.1 cm. Atherosclerotic changes. Soft tissues: Tiny fat containing umbilical hernia. Minimal fat in the inguinal canals. Bladder: No gross wall thickening. No calculi.No focal mass. Bowel: No obstruction. No bowel wall thickening. Appendix normal. Mild diverticulosis. No evidenc e of diverticulitis. Peritoneal cavity: No ascites. No focal collection. No mesenteric inflammatory response. Bones: Degenerative changes in the spine. Prominent osteophytes in lower thoracic region. Schmorl's nodes at multiple levels. Severe disc space narrowing at L5-S1. No acute fractures. No destructiv e bony lesions. Reproductive organs: Unremarkable. Lymph nodes: No pathologically enlarged lymph nodes. IMPRESSION:: No acute abnormality in the abdomen or pelvis. RADIATION DOSE DELIVERED: Total DLP DATA REPOSITORY: All CT scans at this facility are submitted to the National Radiology Data Registry (NRDR) Dose Index Registry (DIR) with the [employer] ([employer]). RADIATION OPTIMIZATION: All CT scans at this facility use at least one of these dose optimization te chniques: automated exposure control; mA and/or kV adjustment per patient size (includes targeted exa ms where dose is matched to clinical indication); or iterative reconstruction.
[2024-04-16] MEDS: Barium Sulfate 2% W/V-Berry Smoothie 450 ML BTL PO ×2 (12:39→12:40)
[2024-04-16 13:18] LABS: Abs Immature Grans 0.04 10^3/uL (0.0-0.06); Absolute Basophil Count 0.05 10^3/uL (0.0-0.2); Absolute Eosinophil Count 0.14 10^3/uL (0.0-0.7); Absolute Lymphocyte Count 1.92 10^3/uL (1.2-3.4); Absolute Monocyte Count 0.63 10^3/uL (0.1-0.8); Basophils % 0.6 %; Eosinophils % 1.6 %; HCT 43.9 % (40.0-50.0); HGB 15.1 g/dL (13.5-17.5); Immature Grans % 0.5 %; Lymphocytes % 22.4 %; MCH 30.8 pg (27.0-33.0); MCHC 34.4 % (32.0-36.0); MCV 89 fL (80-95); MPV 10.1 fL (8.0-11.0); Monocytes % 7.3 %; Neutrophils % 67.6 %; Platelet Count 235 10^3/uL (130-400); RBC 4.91 10^6/uL (4.36-5.78); RDW 12.5 % (11.8-14.1); RDW-SD 41.5 fL; WBC 8.58 10^3/uL (4.4-10.8)
[2024-04-16 13:34] LABS: ALT 67 U/L (16-63); AST 30 U/L (15-37); Albumin 3.8 g/dL (3.4-5.0); Alkaline Phosphatase 93 U/L (46-116); Anion Gap 8.7 mmol/L (3-11); BUN 15 mg/dL (7-18); Bilirubin, Total 0.43 mg/dL (0.2-1.0); CO2 25.3 mmol/L (21.0-32.0); CREATININE 1.1 mg/dL (0.70-1.30); Calcium 9.3 mg/dL (8.5-10.1); Chloride 104 mmol/L (98-107); Estimated GFR 76.85 (mL/min/1.73m2); Glucose 94 mg/dL (74-106); Lipase 39 U/L (16-77); Potassium 3.8 mmol/L (3.5-5.1); Sodium 138 mmol/L (136-145); Total Protein 8.1 g/dL (6.4-8.2)
--- NOTE | 2024-04-16 14:35 | DI.US_ITS ---
Exam(s) US SCROTUM EXAM: US SCROTUM CLINICAL HISTORY: testicular pain, N50.819. TECHNIQUE: Scrotal ultrasound performed using grayscale, color-flow and spectral Doppler analysis. COMPARISON: No exams were available for comparison FINDINGS: RIGHT TESTICLE: 4.6 x 2.9 x 3.1 cm Echogenicity: Normal. Contour: Smooth. Mass: None seen. Microlithiasis: None. Hydrocele: Small, measured at 2.1 x 0.4 x 2.3 Varicocele: None. Hernia: No peristalsing bowel loop identified. Epididymis: Normal. Scrotum: Normal. LEFT TESTICLE: 3.5 x 2 x 2.8 cm Echogenicity: Normal. Contour: Smooth. Mass: None seen. Microlithiasis: None. Hydrocele: Small, measured at 2.1 x 1.2 x 1.6 cm. Varicocele: None. Hernia: No peristalsing bowel loop identified. Epididymis: Normal. Scrotum: Normal. DOPPLER: Color: Symmetric and uniform, no hyperemia. Duplex: Bilateral testicular arterial waveforms visualized. IMPRESSION: Normal appearing bilateral testicles and epididymi. Small bilateral hydroceles. DATA REPOSITORY:
[2024-04-16] MEDS: Normal Saline - Diluent 50 ML VIAL IJ (14:42)
[2024-04-16] MEDS: Omnipaque 350 MG/ML 100 ML BTL IJ (14:43)
== END ==
PROVIDERS: PCP Family Medicine; Visit Provider Physician Assistant
DX: R10.9 Unspecified abdominal pain (principal); N50.819 Testicular pain, unspecified; N43.3 Hydrocele, unspecified
CPT/HCPCS: 36415; 80053; 83690; 74177; 76870; 85025; J3490

== ENCOUNTER → 2024-04-17 13:15 | Outpatient (BNVA) | payer OTHER, MEDICAID, SELFPAY | PROVIDERS: PCP Family Medicine; Visit Provider Urology | DX: R10.31 Right lower quadrant pain (principal); R10.32 Left lower quadrant pain; N40.1 Benign prostatic hyperplasia with lower urinary tract symptoms; N13.8 Other obstructive and reflux uropathy; R30.0 Dysuria | CPT/HCPCS: 81003; 99214 ==

== ENCOUNTER → 2024-05-18 14:26 | Outpatient (BNVA) | payer OTHER, MEDICAID, SELFPAY | PROVIDERS: PCP Family Medicine; Visit Provider Urology ==

== ENCOUNTER 2024-05-18 16:21 | Outpatient (CLI) | payer OTHER, MEDICAID, SELFPAY ==
[2024-05-19 21:45] LABS: PSA, Diagnostic 0.1 ng/mL (<=4.5)
== END 2024-05-18 16:22 | disposition home or self-care (01) ==
LOC: LBO 16:21
PROVIDERS: PCP Family Medicine; Visit Provider Urology
DX: N13.8 Other obstructive and reflux uropathy (principal); N40.1 Benign prostatic hyperplasia with lower urinary tract symptoms
CPT/HCPCS: 36415; 99213; 84153

== ENCOUNTER → 2024-07-02 13:48 | Outpatient (BNVA) | payer OTHER, MEDICAID, SELFPAY | PROVIDERS: PCP Family Medicine; Referring Provider Family Medicine; Visit Provider Urology | DX: R10.2 Pelvic and perineal pain (principal) | CPT/HCPCS: 99214 ==

== ENCOUNTER 2024-07-29 01:56 | Outpatient (CLI) | payer OTHER, MEDICAID, SELFPAY ==
--- NOTE | 2024-07-29 07:15 | DI.CT_ITS ---
Exam(s) CT HEAD WO EXAM: CT HEAD WO CLINICAL HISTORY: worsening headaches,r51.9. TECHNIQUE: Imaging Protocol: Axial computed tomography images with coronal and sagittal reformatted images were created and reviewed COMPARISON: No exams were available for comparison FINDINGS: There are no skull fractures. There is no fluid in the visualized paranasal sinuses. There is no evidence of intracranial hemorrhage, mass effect, or shift of midline structures. There are no extra-axial fluid collections. The ventricles are not enlarged or shifted and there is no blo od within the ventricular system nor within the basal cisterns. There is subtle area of asymmetric hypodensity adjacent to the right lateral ventricle, just medial t o the genu right internal capsule, possibly significant. No other obvious focal significant findings . IMPRESSION: Subtle area of asymmetric right periventricular hypodensity as described above. Recommend follow-up MRI with diffusion imaging. RADIATION DOSE DELIVERED: 928.31mGy.cm Total DLP DATA REPOSITORY: All CT scans at this facility are submitted to the National Radiology Data Registry (NRDR) Dose Index Registry (DIR) with the [employer] ([employer]). RADIATION OPTIMIZATION: All CT scans at this facility use at least one of these dose optimization te chniques: automated exposure control; mA and/or kV adjustment per patient size (includes targeted exa ms where dose is matched to clinical indication); or iterative reconstruction.
== END 2024-07-29 02:16 ==
LOC: DI 01:57
PROVIDERS: PCP Family Medicine; Visit Provider Family Medicine
DX: R51.9 Headache, unspecified (principal)
CPT/HCPCS: 70450

== ENCOUNTER 2024-07-29 03:33 | Outpatient (CLI) | payer OTHER, MEDICAID, SELFPAY ==
[2024-07-29 13:59] LABS: ESR 12 mm/hr (0-20)
[2024-07-29 14:24] LABS: ALT 42 U/L (16-63); AST 26 U/L (15-37); Albumin 3.4 g/dL (3.4-5.0); Alkaline Phosphatase 75 U/L (46-116); Anion Gap 6.9 mmol/L (3-11); BUN 14 mg/dL (7-18); Bilirubin, Total 0.27 mg/dL (0.2-1.0); CO2 26.1 mmol/L (21.0-32.0); CREATININE 1.1 mg/dL (0.70-1.30); Calcium 8.5 mg/dL (8.5-10.1); Chloride 109 mmol/L (98-107); Estimated GFR 76.85 (mL/min/1.73m2); Glucose 101 mg/dL (74-106); Potassium 4.4 mmol/L (3.5-5.1); Sodium 142 mmol/L (136-145); Total Protein 6.8 g/dL (6.4-8.2)
== END 2024-07-29 03:34 | disposition home or self-care (01) ==
LOC: LBO 03:33
PROVIDERS: PCP Family Medicine; Visit Provider Family Medicine
DX: R51.9 Headache, unspecified (principal); M50.00 Cervical disc disorder with myelopathy, unspecified cervical region; I10 Essential (primary) hypertension
CPT/HCPCS: 36415; 80053; 85652

== ENCOUNTER 2024-08-25 01:54 | Outpatient (CLI) | payer OTHER, MEDICAID, SELFPAY ==
--- NOTE | 2024-08-25 07:30 | DI.MRI_ITS ---
Exam(s) MR BRAIN WO/W EXAM: MR BRAIN WO/W CLINICAL HISTORY: seeF/U ABNL CT,R93.0,SUBTLE AREA ASYMMETRIC RT PERIVENTRICULAR HYPODENSITY TECHNIQUE: Multiplanar multisequence MRI of the brain was performed. Both noninfused and contrast i nfused sequences were performed. IV Contrast injected was 20 cc Dotarem. COMPARISON: CT CT HEAD WO from 07/29/2024 FINDINGS: CEREBRAL PARENCHYMA: No evidence of intracranial hemorrhage, mass effect nor shift of midline structu re. No extraaxial fluid collections. Ventricles are not enlarged nor shifted. There is no significant focal signal abnormality in the cerebellar hemispheres. There is, however, s ignificant signal abnormality in central and right side of the noam, less so in the left side of the noam. Not associated with hemorrhage nor enhancement nor restricted diffusion on DWI. No abnormal s ignal in the midbrain and thalami. There are multiple small sub cm foci of signal abnormality in the bilateral periventricular white matter consistent with chronic small-vessel white matter ischemic ch anges. These do not exhibit evidence of hemorrhage nor surrounding edema nor enhancement following c ontrast injection and no evidence of restricted diffusion. There are no ring enhancing lesions in th e brain and there is no abnormal meningeal enhancement, focal nor diffuse. DWI: No areas of restricted diffusion to suggest acute ischemic event. SWI: No microhemorrhages evident. There are no ring enhancing lesions in the brain. There is no abnormal meningeal enhancement. No ev idence of venous sinus thrombosis PITUITARY GLAND: No mass nor parasellar abnormality. No obvious abnormality in the cavernous sinuses. FLOW VOIDS: The expected flow void are noted. No evidence of obvious aneurysm nor obvious vascular ma lformation. PARANASAL SINUSES: The visualized paranasal sinuses appear unremarkable. ORBITS: No obvious abnormal findings. IMPRESSION: 1. There is abundant periventricular signal abnormality consistent with chronic small vessel disease. One of these foci corresponds to the finding described on the recent CT scan. There are less, ther e are no foci of restricted diffusion in the brain to suggest recent acute infarcts/ischemic events. 2. No abnormal enhancing intracranial findings. There are no ring enhancing lesions in the brain and there is no abnormal meningeal enhancement. DATA REPOSITORY:
[2024-08-25] MEDS: Gadoterate meglumine 20 ML SYRINGE IVP (11:47)
[2024-08-25] MEDS: Normal Saline Flush 10 ML SYR IJ (11:48)
== END 2024-08-25 02:14 ==
LOC: DI 01:54
PROVIDERS: PCP Family Medicine; Visit Provider Family Medicine
DX: I67.82 Cerebral ischemia (principal)
CPT/HCPCS: 70553

== ENCOUNTER 2024-11-12 08:52 | Outpatient (CLI) | payer MEDICARE, MEDICAID, SELFPAY | END 2024-11-12 08:53 | disposition home or self-care (01) | LOC: DI.CARD 08:53 | PROVIDERS: PCP Family Medicine; Visit Provider Internal Medicine Cardiovascular Disease | CPT/HCPCS: 93010 ==

== ENCOUNTER 2024-11-13 08:07 | Outpatient (CLI) | payer MEDICARE, MEDICAID, SELFPAY ==
--- NOTE | 2024-11-13 08:00 | RT.EKG_ITS ---
APPROVED REPORT Exam: Resting ECG Reason for Exam: cardiac evaluation Patient Location: O HR:68 bpm ECG Measurements Heart Rate 68 AXIS CO 179 P 18 QRSd 112 QRS -77 QT 388 T 59 QTc 413 Conclusion Sinus rhythm...normal P axis, V-rate 50- 99 Left anterior fascicular block...axis(240,-40), init forces inf Early transition
== END 2024-11-13 08:08 | disposition home or self-care (01) ==
LOC: DI.CARD 08:08
PROVIDERS: PCP Family Medicine; Visit Provider Internal Medicine Cardiovascular Disease
DX: I42.9 Cardiomyopathy, unspecified; R00.1 Bradycardia, unspecified
CPT/HCPCS: 93010

== ENCOUNTER → 2024-11-13 13:20 | Outpatient (BNVA) | payer MEDICARE, MEDICAID, SELFPAY | PROVIDERS: PCP Family Medicine; Referring Provider Family Medicine; Visit Provider Internal Medicine Cardiovascular Disease | DX: I44.4 Left anterior fascicular block (principal); I42.9 Cardiomyopathy, unspecified | CPT/HCPCS: 93005; 99213 ==

== ENCOUNTER → 2024-11-27 14:49 | Outpatient (BNVA) | payer MEDICARE, MEDICAID, SELFPAY | PROVIDERS: PCP Family Medicine; Referring Provider Family Medicine; Visit Provider Urology | DX: N39.41 Urge incontinence (principal); N41.1 Chronic prostatitis; G89.4 Chronic pain syndrome | CPT/HCPCS: 99214 ==

== ENCOUNTER 2024-12-28 02:45 | Outpatient (CLI) | payer MEDICARE, MEDICAID, SELFPAY ==
[2024-12-28 10:52] LABS: Hemoglobin A1C 5.8 % (<5.7)
[2024-12-28 11:54] LABS: ALT 54 U/L (16-63); AST 26 U/L (15-37); Albumin 3.5 g/dL (3.4-5.0); Alkaline Phosphatase 92 U/L (46-116); Anion Gap 5.6 mmol/L (3-11); BUN 18 mg/dL (7-18); Bilirubin, Total 0.2 mg/dL (0.2-1.0); CO2 31.4 mmol/L (21.0-32.0); Calcium 8.9 mg/dL (8.5-10.1); Calculated LDL 103 mg/dL (<100); Chloride 107 mmol/L (98-107); Cholesterol 161 mg/dL (<200); Estimated GFR 85.63 (mL/min/1.73m2); Glucose 97 mg/dL (74-106); HDL Cholesterol 45 mg/dL (>or=40); Potassium 4.3 mmol/L (3.5-5.1); Sodium 144 mmol/L (136-145); TSH (W/Ref FT4) 1.05 uIU/mL (0.36-3.74); Total Protein 7.2 g/dL (6.4-8.2); Triglyceride 67 mg/dL (<150)
== END 2024-12-28 02:46 | disposition home or self-care (01) ==
LOC: LBO 02:46
PROVIDERS: PCP Family Medicine; Visit Provider Family Medicine
DX: E03.9 Hypothyroidism, unspecified (principal); I10 Essential (primary) hypertension; E11.9 Type 2 diabetes mellitus without complications
CPT/HCPCS: 36415; 80053; 80061; 83036; 84443

== ENCOUNTER → 2025-01-11 09:47 | Outpatient (BNVA) | payer MEDICARE, MEDICAID, SELFPAY | PROVIDERS: PCP Family Medicine; Visit Provider Urology | DX: R39.9 Unspecified symptoms and signs involving the genitourinary system (principal) | CPT/HCPCS: 99213 ==